=== PATIENT | female | born 1935 | race Caucasian/White ===

== ENCOUNTER 2021-01-14 10:21 | Inpatient (IN) | payer MEDICARE, BC ==
[2021-01-14] MEDS ORDERED: SODIUM CHLORIDE 0.9% 1,000 ML IV ONE (10:25)
[2021-01-14] MEDS ORDERED: SODIUM CHLORIDE 0.9% 1,000 ML IV STA (10:25)
[2021-01-14 11:16] LABS: Glucose,Whole Blood 111 mg/dL (75-99)
[2021-01-14 11:27] LABS: Basophils % (A) 0 %; Eosinophils % (A) 0 %; HCT 53.8 % (34.0-46.0); HGB 17.5 gm/dL (11.4-16.0); Lymphocytes # (A) 0.8 k/uL (1.0-4.8); Lymphocytes % (A) 5 %; MCH 29.4 pg (25.0-35.0); MCHC 32.5 g/dL (31.0-37.0); MCV 90.5 fL (80.0-100.0); Mean Platelet Volume 7.6; Monocytes # (A) 0.9 k/uL (0-1.0); Monocytes % (A) 6 %; Neutrophils # (A) 13.7 k/uL (1.3-7.7); Neutrophils % (A) 88 %; Platelet Count 217 k/uL (150-450); RBC 5.94 m/uL (3.80-5.40); RDW 13.7 % (11.5-15.5); WBC 15.5 k/uL (3.8-10.6)
[2021-01-14 11:34] LABS: Amorphous Sediment,Urine Rare /hpf; Appearance,Urine Cloudy (Clear); Bacteria,Urine Occasional /hpf; Bilirubin,Urine Negative (Negative); Blood,Urine Large (Negative); Color,Urine Light Yellow; Glucose,Urine (UA) Trace (Negative); Hyaline Casts,Urine 3 /lpf (0-2); Ketones,Urine 2+ (Negative); Leukocyte Esterase,Urine Negative (Negative); Mucus,Urine Rare /hpf; Nitrite,Urine Negative (Negative); Protein,Urine 2+ (Negative); RBC,Urine 4 /hpf (0-5); Specific Gravity,Urine 1.014 (1.001-1.035); Urobilinogen,Urine <2.0 mg/dL (<2.0); WBC,Urine 3 /hpf (0-5)
[2021-01-14 11:38] LABS: Amphetamine Screen,Urine Not Detected (NotDetected); Barbiturate Screen,Urine Not Detected (NotDetected); Benzodiazepines Screen,Urine Not Detected (NotDetected); Cocaine Screen,Urine Not Detected (NotDetected); Methadone Screen, Urine Not Detected (NotDetected); Opiate Screen,Urine Not Detected (NotDetected); Oxycodone Screen, Urine Not Detected (NotDetected); Phencyclidine Screen,Urine Not Detected (NotDetected); Tricyclic Antidepressant,Urine Not Detected (NotDetected); Urn Cannabinoid Scrn Not Detected (NotDetected)
[2021-01-14 11:39] LABS: ALT 22 U/L (4-34); African American GFR (CKD) 62 (>60 ml/min/1.73 sqM); Albumin 4.6 g/dL (3.5-5.0); Alcohol <10 mg/dL; Anion Gap 16 mmol/L; Blood Urea Nitrogen 24 mg/dL (7-17); Calcium 9.4 mg/dL (8.4-10.2); Carbon Dioxide 18 mmol/L (22-30); Chloride 101 mmol/L (98-107); Glucose 117 mg/dL (74-99); INR 1.1 (<1.2); Non-African American GFR(CKD) 54 (>60 ml/min/1.73 sqM); Prothrombin Time 11.2 sec (9.0-12.0); Sodium 135 mmol/L (137-145); Total Bilirubin 1.8 mg/dL (0.2-1.3); Total Protein 8.2 g/dL (6.3-8.2)
[2021-01-14 11:43] LABS: AST 75 U/L (14-36); Alkaline Phosphatase 79 U/L (38-126); Potassium 5.7 mmol/L (3.5-5.1)
[2021-01-14 11:44] LABS: Creatine Kinase 1568 U/L (30-135)
--- NOTE | 2021-01-14 11:51 | XR ---
EXAMINATION TYPE: XR chest 2V DATE OF EXAM: 01/14/2021 COMPARISON: None INDICATION: Altered mental status TECHNIQUE: Frontal and lateral views of the chest are obtained. FINDINGS: The heart size is moderately prominent. The pulmonary vasculature is normal. Focal consolidation is not identified.. IMPRESSION: 1. No acute pulmonary process.
--- NOTE | 2021-01-14 11:54 | CT ---
EXAMINATION TYPE: CT brain shannon lou DATE OF EXAM: 01/14/2021 COMPARISON: None HISTORY: altered mental status, found outside unresponsive CT DLP: 1595.8 mGycm, Automated exposure control for dose reduction was used. CONTRAST: Patient injected with 0 mL of Isovue 300. CT of the brain is performed utilizing 3 mm thick sections through the posterior fossa and 3 mm thick sections through the remaining calvarium. Study is performed within 24 hours of arrival to the hospital. No abnormal hyperdensity is present to suggest an acute intracranial hemorrhage. No mass lesion is evident. No acute infarcts are evident. Periventricular white matter hypodensity is present, likely on the ba sis of chronic white matter ischemic changes. Ventricles and sulci are appropriate for the patient age. Paranasal sinuses and mastoid air cells within the [id number] are clear. IMPRESSIONS: 1. Mild appearing periventricular white matter ischemic changes. CT cervical spine. COMPARISON: None CT of the cervical spine is performed in the axial plane at 2 mm thick sections. Reconstructed image s in the coronal, and sagittal plane are reviewed on the computer. No acute fractures are evident. Vertebral body alignment is normal. There is loss of disc height especially noted see 45 C5-6 C6-7. Some endplate spurring is present at these levels. No spinal canal stenosis is present. Vertebral body heights are preserved. No spinal canal stenosis is evident. Uncovertebral hypertrophy is narrowing on the left at C4-5 bilateral uncovertebral vertebrae is prese nt causing moderate foraminal narrowing C5-6 uncovertebral joint hypertrophy is present at C6-7 with moderate foraminal narrowing. IMPRESSIONS: 1. No acute osseous abnormality cervical spine. 2. Advanced degenerative disc changes C4-5 through C6-7. 3. Uncovertebral joint hypertrophy contributing to foraminal narrowing discussed above lower cervical spine
--- NOTE | 2021-01-14 12:05 | ED ---
General Adult HPI - General Chief complaint: Neuro Symptoms/Deficit Stated complaint: Possible stroke, Fall Time Seen by Provider: 01/14/21 10:21 Source: patient, EMS, RN notes reviewed Mode of arrival: EMS - History of Present Illness Initial comments: Is a 78-year-old female who apparently was found on the ground outside in her nightgown by a relative. His believes she may have been out there all night. She was brought in by EMS she was altered evidence of hypothermia. She was nonconversant. HEENT confused. - Related Data Home Medications Medication Instructions Recorded Confirmed Aspirin 81 mg PO DAILY 07/01/14 01/14/21 Metoprolol Tartrate [Lopressor] 100 mg PO BID 07/01/14 01/14/21 Fish Oil(Unknown Dose) 1 cap PO DAILY 01/14/21 01/14/21 Multivitamins, Thera [Multivitamin 1 tab PO DAILY 01/14/21 01/14/21 (formulary)] Naproxen [Naprosyn] 500 mg PO DAILY 01/14/21 01/14/21 Vitamin D3(Unknown Dose) 1 cap PO DAILY 01/14/21 01/14/21 Allergies Allergy/AdvReac Type Severity Reaction Status Date / Time No Known Allergies Allergy Verified 01/14/21 12:04 Review of Systems ROS Statement: Those systems with pertinent positive or pertinent negative responses have been documented in the HPI. ROS Other: All systems not noted in ROS Statement are negative. Limitations: ROS unobtainable due to patients medical condition Past Medical History Past Medical History: Cancer, CVA/TIA, Hypertension Additional Past Medical History / Comment(s): skin cancer History of Any Multi-Drug Resistant Organisms: None Reported Past Surgical History: Orthopedic Surgery Additional Past Surgical History / Comment(s): tumor removed rt wrist, rt bunionectomy Past Anesthesia/Blood Transfusion Reactions: No Reported Reaction Past Psychological History: No Psychological Hx Reported Smoking Status: Unknown if ever smoked Past Alcohol Use History: None Reported Past Drug Use History: None Reported - Past Family History Daughter(s) Family Medical History: Cancer General Exam - General Exam Comments Initial Comments: This is a well-developed sec appearing female who is awake and confused nonverbal Limitations: altered mental status, physical limitation General appearance: alert, lethargic Head exam: Present: other (Some abrasion seen to the forehead) Eye exam: Present: normal appearance, PERRL, EOMI. Absent: scleral icterus, conjunctival injection, periorbital swelling ENT exam: Present: mucous membranes dry Neck exam: Present: normal inspection, full ROM, other (No stridor JVD or bruits). Absent: tenderness, meningismus, lymphadenopathy Respiratory exam: Present: normal lung sounds bilaterally. Absent: respiratory distress, wheezes, rales, rhonchi, stridor Cardiovascular Exam: Present: regular rate, tachycardia GI/Abdominal exam: Present: soft, normal bowel sounds. Absent: distended, tenderness, guarding, rebound, rigid Rectal exam: Present: normal inspection Extremities exam: Present: other (Evidence of pressure sores on the left medial metatarsal phalangeal joint and also the dorsal aspect of the toes on the right as well as the lower extremities.) Skin exam: Present: dry, pallor (Cool the touch). Absent: warm Course Vital Signs 01/14/21 01/14/21 01/14/21 10:23 11:56 14:01 Temperature 90.6 F L 97.4 F L Pulse Rate 142 H 68 75 Respiratory 18 18 18 Rate Blood Pressure 76/64 144/94 129/90 O2 Sat by Pulse 92 L 93 L 95 Oximetry - Reevaluation(s) Reevaluation #1: 01/14/21 14:38 Repeat evaluations were done patient's neurological status is essentially unchanged did have a long discussion with the patient's son who did find the patient lying on the ground wearing only nightgown. Patient apparently had a lot of house and did not things over on her way out of the house. He also relates that she's been not feeling right last couple days. He is aware the current status. EKG Findings - EKG Results: EKG: interpreted by CAROLINA, sinus rhythm (Sinus rhythm with occasional PVCs rate 70. Interval 182 QRS 142 QT since QTC 526/568) the read block with anterior fascicular block nonspecific inferior changes) Medical Decision Making - Medical Decision Making I did reevaluate the patient multiple occasions she neurologically is not improved cervical anoxia is considered as well as CVA. She is improving with respect to heart rate after rehydration and warming with the latest temperature 97.5, and latest examination. Patient initially started with a blood pressure 76/64 heart rate 142. Did a long discussion the patient's family as well as with Dr. Villa and later Dr. Lynn. She'll be admitted with narrowing cardiology consultation. Per nursing 1 family member was concerned for the right arm though initially she was a present patient will receive x-rays. These are pending. - Lab Data Result diagrams: 01/14/21 11:14 01/14/21 11:14 Lab Results 01/14/21 01/14/21 01/14/21 Range/Units 11:14 11:14 11:14 WBC 15.5 H (3.8-10.6) k/uL RBC 5.94 H (3.80-5.40) m/uL Hgb 17.5 H (11.4-16.0) gm/dL Hct 53.8 H (34.0-46.0) % MCV 90.5 (80.0-100.0) fL MCH 29.4 (25.0-35.0) pg MCHC 32.5 (31.0-37.0) g/dL RDW 13.7 (11.5-15.5) % Plt Count 217 (150-450) k/uL MPV 7.6 Neutrophils % 88 % Lymphocytes % 5 % Monocytes % 6 % Eosinophils % 0 % Basophils % 0 % Neutrophils # 13.7 H (1.3-7.7) k/uL Lymphocytes # 0.8 L (1.0-4.8) k/uL Monocytes # 0.9 (0-1.0) k/uL Eosinophils # 0.0 (0-0.7) k/uL Basophils # 0.0 (0-0.2) k/uL PT 11.2 (9.0-12.0) sec INR 1.1 (<1.2) APTT 24.0 (22.0-30.0) sec Sodium (137-145) mmol/L Potassium (3.5-5.1) mmol/L Chloride (98-107) mmol/L Carbon Dioxide (22-30) mmol/L Anion Gap mmol/L BUN (7-17) mg/dL Creatinine (0.52-1.04) mg/dL Est GFR (CKD-EPI)AfAm (>60 ml/min/1.73 sqM) Est GFR (CKD-EPI)NonAf (>60 ml/min/1.73 sqM) Glucose (74-99) mg/dL POC Glucose (mg/dL) (75-99) mg/dL POC Glu Bridge Instructor ID Calcium (8.4-10.2) mg/dL Total Bilirubin (0.2-1.3) mg/dL AST (14-36) U/L ALT (4-34) U/L Alkaline Phosphatase (38-126) U/L Ammonia (<30) umol/L Creatine Kinase (30-135) U/L Troponin I (0.000-0.034) ng/mL Total Protein (6.3-8.2) g/dL Albumin (3.5-5.0) g/dL Urine Color Light Yellow Urine Appearance Cloudy H (Clear) Urine pH 6.0 (5.0-8.0) Ur Specific [place] 1.014 (1.001-1.035) Urine Protein 2+ H (Negative) Urine Glucose (UA) Trace H (Negative) Urine Ketones 2+ H (Negative) Urine Blood Large H (Negative) Urine Nitrite Negative (Negative) Urine Bilirubin Negative (Negative) Urine Urobilinogen <2.0 (<2.0) mg/dL Ur Leukocyte Esterase Negative (Negative) Urine RBC 4 (0-5) /hpf Urine WBC 3 (0-5) /hpf Amorphous Sediment Rare H (None) /hpf Urine Bacteria Occasional H (None) /hpf Hyaline Casts 3 H (0-2) /lpf Urine Mucus Rare H (None) /hpf Urine Opiates Screen Not Detected (NotDetected) Ur Oxycodone Screen Not Detected (NotDetected) Urine Methadone Screen Not Detected (NotDetected) Ur Propoxyphene Screen Not Detected (NotDetected) Ur Barbiturates Screen Not Detected (NotDetected) U Tricyclic Antidepress Not Detected (NotDetected) Ur Phencyclidine Scrn Not Detected (NotDetected) Ur Amphetamines Screen Not Detected (NotDetected) U Methamphetamines Scrn Not Detected (NotDetected) U Benzodiazepines Scrn Not Detected (NotDetected) Urine Cocaine Screen Not Detected (NotDetected) U Marijuana (THC) Screen Not Detected (NotDetected) Serum Alcohol mg/dL 01/14/21 01/14/21 01/14/21 Range/Units 11:14 11:14 11:14 WBC (3.8-10.6) k/uL RBC (3.80-5.40) m/uL Hgb (11.4-16.0) gm/dL Hct (34.0-46.0) % MCV (80.0-100.0) fL MCH (25.0-35.0) pg MCHC (31.0-37.0) g/dL RDW (11.5-15.5) % Plt Count (150-450) k/uL MPV Neutrophils % % Lymphocytes % % Monocytes % % Eosinophils % % Basophils % % Neutrophils # (1.3-7.7) k/uL Lymphocytes # (1.0-4.8) k/uL Monocytes # (0-1.0) k/uL Eosinophils # (0-0.7) k/uL Basophils # (0-0.2) k/uL PT (9.0-12.0) sec INR (<1.2) APTT (22.0-30.0) sec Sodium 135 L (137-145) mmol/L Potassium 5.7 H (3.5-5.1) mmol/L Chloride 101 (98-107) mmol/L Carbon Dioxide 18 L (22-30) mmol/L Anion Gap 16 mmol/L BUN 24 H (7-17) mg/dL Creatinine 0.95 (0.52-1.04) mg/dL Est GFR (CKD-EPI)AfAm 62 (>60 ml/min/1.73 sqM) Est GFR (CKD-EPI)NonAf 54 (>60 ml/min/1.73 sqM) Glucose 117 H (74-99) mg/dL POC Glucose (mg/dL) (75-99) mg/dL POC Glu Bridge Instructor ID Calcium 9.4 (8.4-10.2) mg/dL Total Bilirubin 1.8 H (0.2-1.3) mg/dL AST 75 H (14-36) U/L ALT 22 (4-34) U/L Alkaline Phosphatase 79 (38-126) U/L Ammonia 42 H (<30) umol/L Creatine Kinase 1568 H* (30-135) U/L Troponin I 0.464 H* (0.000-0.034) ng/mL Total Protein 8.2 (6.3-8.2) g/dL Albumin 4.6 (3.5-5.0) g/dL Urine Color Urine Appearance (Clear) Urine pH (5.0-8.0) Ur Specific [place] (1.001-1.035) Urine Protein (Negative) Urine Glucose (UA) (Negative) Urine Ketones (Negative) Urine Blood (Negative) Urine Nitrite (Negative) Urine Bilirubin (Negative) Urine Urobilinogen (<2.0) mg/dL Ur Leukocyte Esterase (Negative) Urine RBC (0-5) /hpf Urine WBC (0-5) /hpf Amorphous Sediment (None) /hpf Urine Bacteria (None) /hpf Hyaline Casts (0-2) /lpf Urine Mucus (None) /hpf Urine Opiates Screen (NotDetected) Ur Oxycodone Screen (NotDetected) Urine Methadone Screen (NotDetected) Ur Propoxyphene Screen (NotDetected) Ur Barbiturates Screen (NotDetected) U Tricyclic Antidepress (NotDetected) Ur Phencyclidine Scrn (NotDetected) Ur Amphetamines Screen (NotDetected) U Methamphetamines Scrn (NotDetected) U Benzodiazepines Scrn (NotDetected) Urine Cocaine Screen (NotDetected) U Marijuana (THC) Screen (NotDetected) Serum Alcohol <10 mg/dL 01/14/21 Range/Units 11:14 WBC (3.8-10.6) k/uL RBC (3.80-5.40) m/uL Hgb (11.4-16.0) gm/dL Hct (34.0-46.0) % MCV (80.0-100.0) fL MCH (25.0-35.0) pg MCHC (31.0-37.0) g/dL RDW (11.5-15.5) % Plt Count (150-450) k/uL MPV Neutrophils % % Lymphocytes % % Monocytes % % Eosinophils % % Basophils % % Neutrophils # (1.3-7.7) k/uL Lymphocytes # (1.0-4.8) k/uL Monocytes # (0-1.0) k/uL Eosinophils # (0-0.7) k/uL Basophils # (0-0.2) k/uL PT (9.0-12.0) sec INR (<1.2) APTT (22.0-30.0) sec Sodium (137-145) mmol/L Potassium (3.5-5.1) mmol/L Chloride (98-107) mmol/L Carbon Dioxide (22-30) mmol/L Anion Gap mmol/L BUN (7-17) mg/dL Creatinine (0.52-1.04) mg/dL Est GFR (CKD-EPI)AfAm (>60 ml/min/1.73 sqM) Est GFR (CKD-EPI)NonAf (>60 ml/min/1.73 sqM) Glucose (74-99) mg/dL POC Glucose (mg/dL) 111 H (75-99) mg/dL POC Glu Bridge Instructor ID Meche Godoy Calcium (8.4-10.2) mg/dL Total Bilirubin (0.2-1.3) mg/dL AST (14-36) U/L ALT (4-34) U/L Alkaline Phosphatase (38-126) U/L Ammonia (<30) umol/L Creatine Kinase (30-135) U/L Troponin I (0.000-0.034) ng/mL Total Protein (6.3-8.2) g/dL Albumin (3.5-5.0) g/dL Urine Color Urine Appearance (Clear) Urine pH (5.0-8.0) Ur Specific [place] (1.001-1.035) Urine Protein (Negative) Urine Glucose (UA) (Negative) Urine Ketones (Negative) Urine Blood (Negative) Urine Nitrite (Negative) Urine Bilirubin (Negative) Urine Urobilinogen (<2.0) mg/dL Ur Leukocyte Esterase (Negative) Urine RBC (0-5) /hpf Urine WBC (0-5) /hpf Amorphous Sediment (None) /hpf Urine Bacteria (None) /hpf Hyaline Casts (0-2) /lpf Urine Mucus (None) /hpf Urine Opiates Screen (NotDetected) Ur Oxycodone Screen (NotDetected) Urine Methadone Screen (NotDetected) Ur Propoxyphene Screen (NotDetected) Ur Barbiturates Screen (NotDetected) U Tricyclic Antidepress (NotDetected) Ur Phencyclidine Scrn (NotDetected) Ur Amphetamines Screen (NotDetected) U Methamphetamines Scrn (NotDetected) U Benzodiazepines Scrn (NotDetected) Urine Cocaine Screen (NotDetected) U Marijuana (THC) Screen (NotDetected) Serum Alcohol mg/dL - Radiology Data Radiology results: report reviewed (UG reviewed no acute findings noted at this time.), image reviewed Critical Care Time Critical Care Time: Yes Total Critical Care Time: 49 Critical Care Time: Critical care time includes the time of initial evaluation labs x-rays CT was discussed with paramedics on arrival multiple reevaluation the patient to responsive therapy discussion with the patient's son and discussed with the main physician admission orders documentation the above Disposition Clinical Impression: Cerebral anoxia, Hypothermia, Rhabdomyolysis, Dehydration, NSTEMI (non-ST elevated myocardial infarction) Disposition: ADMITTED IP TO THIS HOSP Condition: Serious Referrals: Silvano Beatty MD [Primary Care Provider] - 1-2 days
[2021-01-14] MEDS: NALOXONE 0.4 MG/ML 1 ML VIAL IVP STA ×2 (13:02→16:39)
[2021-01-14] MEDS ORDERED: NALOXONE 0.4 MG/ML 1 ML VIAL IV PRN (14:44)
[2021-01-14] MEDS ORDERED: ENOXAPARIN 120 MG/0.8 ML SYRINGE SQ STA (14:48)
[2021-01-14] MEDS ORDERED: ENOXAPARIN 40 MG/0.4 ML SYRINGE SQ ONE (15:00)
--- NOTE | 2021-01-14 15:42 | XR ---
EXAMINATION TYPE: XR forearm RT DATE OF EXAM: 01/14/2021 COMPARISON: NONE HISTORY: Pain. Trauma. TECHNIQUE: 3 views FINDINGS: I see no fracture nor dislocation. Radius and ulna appear intact. Elbow joint appears intac t. IMPRESSION: Negative right forearm exam. No fracture.
--- NOTE | 2021-01-14 15:43 | XR ---
EXAMINATION TYPE: XR humerus RT DATE OF EXAM: 01/14/2021 COMPARISON: NONE HISTORY: Pain TECHNIQUE: 3 views FINDINGS: I see no fracture nor dislocation. Shoulder joint and elbow joint appear intact. Scapula ap pears intact. IMPRESSION: Negative right humerus exam.
[2021-01-14] MEDS: DEXTROSE 5%-0.45% NACL 1,000 ML IV SCH ×2 (15:52→23:13)
[2021-01-14 17:43] LABS: Glucose,Whole Blood 99 mg/dL (75-99)
[2021-01-14] MEDS ORDERED: LORazepam 2 MG/ML INJ IV STA (17:47)
--- NOTE | 2021-01-14 19:22 | CT ---
EXAMINATION TYPE: CT angio head neck DATE OF EXAM: 01/14/2021 COMPARISON: None HISTORY: Left eye gaze, inaudible speech, suspected CVA. CT DLP: 1011.5 mGycm Automated exposure control for dose reduction was used. CONTRAST: Performed with IV Contrast, patient injected with 65 mL of Isovue 370. Images were obtained from the aortic arch to the vertex of the brain with IV contrast. There are 3-D post processed images. There is no mediastinal adenopathy. There are no hilar masses. There is normal branching pattern of t he great vessels on the aortic arch. There is bilateral arterial flow in the subclavian arteries. The re is tortuous right common carotid artery. There is arterial flow in the common internal and externa l carotid arteries bilaterally. Exam limited slightly by motion artifact. I see no evidence of any st enosis at the right carotid artery bifurcation. There is some plaque formation and probably 50% steno sis proximal left internal carotid artery. There is arterial flow in both vertebral arteries. There is arterial flow in the vertebrobasilar artery system. There is arterial flow in the anterior m iddle and posterior cerebral arteries. I see no evidence of intracranial hemodynamic arterial stenosi s. There is normal contrast opacification of the venous sinuses. I see no evidence of intracranial an eurysm or neovascularity. IMPRESSION: No intracranial angiographic abnormality. Tortuous right carotid artery. There is probably 50% stenosis of the proximal left internal carotid a rtery. Exam limited slightly by motion.
[2021-01-14] MEDS ORDERED: LABETALOL 5 MG/ML VIAL MDV IVP PRN (20:11)
[2021-01-14] MEDS ORDERED: ASPIRIN 300 MG SUPP RECTAL ONE (21:00)
[2021-01-15 00:10] LABS: Glucose,Whole Blood 138 mg/dL (75-99)
[2021-01-15] MEDS ORDERED: ACETAMINOPHEN SUPPOSITORY 650 MG SUPP RECTAL STA (03:59)
[2021-01-15 04:13] LABS: Basophils % (A) 0 %; Eosinophils % (A) 0 %; HCT 44.7 % (34.0-46.0); HGB 14.8 gm/dL (11.4-16.0); Lymphocytes # (A) 1.1 k/uL (1.0-4.8); Lymphocytes % (A) 7 %; MCH 29.5 pg (25.0-35.0); MCHC 33.1 g/dL (31.0-37.0); MCV 88.9 fL (80.0-100.0); Mean Platelet Volume 8.9; Monocytes # (A) 1.1 k/uL (0-1.0); Monocytes % (A) 7 %; Neutrophils # (A) 13.9 k/uL (1.3-7.7); Neutrophils % (A) 86 %; Platelet Count 199 k/uL (150-450); RBC 5.03 m/uL (3.80-5.40); RDW 13.6 % (11.5-15.5); WBC 16.2 k/uL (3.8-10.6)
[2021-01-15 04:33] LABS: Albumin 3.7 g/dL (3.5-5.0); Potassium 4.4 mmol/L (3.5-5.1); Total Bilirubin 1.2 mg/dL (0.2-1.3); Total Protein 6.8 g/dL (6.3-8.2)
[2021-01-15] MEDS ORDERED: FUROSEMIDE 10 MG/ML 2 ML VIAL IV ONE (04:48)
[2021-01-15] MEDS: DEXTROSE 5%-0.45% NACL 1,000 ML IV SCH ×3 (06:13→21:19)
--- NOTE | 2021-01-15 06:49 | P.CNPUL ---
History of Present Illness Consult date: 01/15/21 Chief complaint: Altered mental status History of present illness: there is an 6-year-old female patient who was apparently found on the ground. The patient was brought into the emergency department. She had altered mentation and she was hypothermic. She was nonconversant and she was confused. The exact timing of the altered mentation versus fall could not be established. patient is known to have previous history of CVA and hypertension. In the ED, she was confused, hypothermic with a temperature of 90.6 and she was given external warming and the temperature subsequently came back to 97.4. She was initially tachycardic and hypotensive with a BP of 76/64 and the patient was given IV fluids and blood pressure improved and stabilized. The patient had an EKG that showed a sinus rhythm with a left anterior fascicular block and some nonspecific inferior leads changes. The white cell count was at 15.5 with a hemoglobin of 17.5 and a platelet count of 217. Sodium was 135, potassium level was 5.7 and the creatinine was 0.95 and a glucose was 117. the patien the patient had a CPK of 1568 with a troponin level was 0.4. UA showed +2 protein, the urine drug screen was negative and the covid 19 testing was also negative. The chest x-ray showed no acute pulmonary process, the computed tomography scan of the head showed no acute abnormalities. The computed tomography scan of the neck showed no osseous abnormality of the cervical spine and there was advanced degenerative disc changes involving C4-C5 and C6-C7 and foraminal narrowing of the lower cervical spine. The x-ray of the forearm and x-ray of the humerus was within normal limits, and a CT angiogram of the brain was done and it showed no intracranial angiographic abnormality. There was a tortuous right carotid probably 50% stenosis of the proximal left internal carotid artery. Accordingly, the patient was admitted to the ICU. The patient was started aspirin mg rectally and the patient was started on D5 half-normal saline at the rate of 130 mL an hour. Review of Systems ROS unobtainable: due to mental status Past Medical History Past Medical History: Cancer, CVA/TIA, Hypertension Additional Past Medical History / Comment(s): skin cancer History of Any Multi-Drug Resistant Organisms: None Reported Past Surgical History: Orthopedic Surgery Additional Past Surgical History / Comment(s): tumor removed rt wrist, rt bunionectomy Past Anesthesia/Blood Transfusion Reactions: No Reported Reaction Past Psychological History: No Psychological Hx Reported Smoking Status: Former smoker Past Alcohol Use History: None Reported Past Drug Use History: None Reported - Past Family History Daughter(s) Family Medical History: Cancer Medications and Allergies Home Medications Medication Instructions Recorded Confirmed Type Aspirin 81 mg PO DAILY 07/01/14 01/14/21 History Metoprolol Tartrate [Lopressor] 100 mg PO BID 07/01/14 01/14/21 History Fish Oil(Unknown Dose) 1 cap PO DAILY 01/14/21 01/14/21 History Multivitamins, Thera [Multivitamin 1 tab PO DAILY 01/14/21 01/14/21 History (formulary)] Naproxen [Naprosyn] 500 mg PO DAILY 01/14/21 01/14/21 History Vitamin D3(Unknown Dose) 1 cap PO DAILY 01/14/21 01/14/21 History Allergies Allergy/AdvReac Type Severity Reaction Status Date / Time No Known Allergies Allergy Verified 01/14/21 12:04 Physical Exam Vitals: Vital Signs Temp Pulse Resp BP Pulse Ox 01/15/21 06:00 89 27 H 144/104 94 L 01/15/21 05:00 91 26 H 158/126 95 01/15/21 04:00 101.0 F H 92 28 H 165/96 94 L 01/15/21 03:00 90 26 H 162/108 93 L 01/15/21 02:00 91 27 H 137/87 91 L 01/15/21 01:00 89 28 H 149/88 94 L 01/15/21 00:28 85 23 132/88 93 L 01/15/21 00:00 99.0 F 86 26 H 141/98 94 L 01/14/21 23:00 87 22 141/106 92 L 01/14/21 22:00 83 27 H 137/119 92 L 01/14/21 21:00 84 23 158/101 92 L 01/14/21 20:00 100.8 F H 81 23 160/119 93 L 01/14/21 19:00 80 22 162/116 96 01/14/21 18:00 82 25 H 157/133 97 01/14/21 17:00 97.8 F 85 24 142/130 97 01/14/21 16:05 98.4 F 76 18 136/91 96 01/14/21 15:00 99.0 F 82 20 140/88 97 01/14/21 14:01 97.4 F L 75 18 129/90 95 01/14/21 13:00 95.2 F L 90 20 150/94 95 01/14/21 11:56 90.6 F L 68 18 144/94 93 L 01/14/21 10:23 142 H 18 76/64 92 L Intake and Output 01/14/21 01/14/21 01/15/21 14:59 22:59 06:59 Intake Total 910 1040 Output Total 795 370 Balance 115 670 Intake: Intake, IV Titration 910 1040 Amount Dextrose 5%-0.45% NaCl 1, 910 1040 000 ml @ 130 mls/hr IV . Q7H42M [facility] Rx#:[id number] Output: Urine 795 370 Other: Voiding Method Indwelling Catheter Indwelling Catheter Weight 89.766 kg 89.766 kg 87.3 kg This is a well-developed sec appearing female who is awake and confused nonv erbal, and the patient is nonresponsive. Upon painful stimulation, the patient is predominantly using her left side compared to the right. He was not equal and reactive to light. No facial asymmetry. No Babinski. No clonus. Reflexes are equal and symmetrical in all 4 extremities. Limitations: altered mental status, physical limitation General appearance: alert, lethargic Head exam: Present: other (Some abrasion seen to the forehead) Eye exam: Present: normal appearance, PERRL, EOMI. Absent: scleral icterus, conjunctival injection, periorbital swelling ENT exam: Present: mucous membranes dry Neck exam: Present: normal inspection, full ROM, other (No stridor JVD or bruits). Absent: tenderness, meningismus, lymphadenopathy Respiratory exam: Present: normal lung sounds bilaterally. Absent: respiratory distress, wheezes, rales, rhonchi, stridor Cardiovascular Exam: Present: regular rate, tachycardia GI/Abdominal exam: Present: soft, normal bowel sounds. Absent: distended, tenderness, guarding, rebound, rigid Rectal exam: Present: normal inspection Extremities exam: Present: other (Evidence of pressure sores on the left medial metatarsal phalangeal joint and also the dorsal aspect of the toes on the right as well as the lower extremities.) Patient has areas of bruising over the left knee, right knee laterally, toes bilaterally. Skin exam: Present: dry, pallor (Cool the touch). Absent: warm Results - Laboratory Findings CBC and BMP: 01/15/21 03:10 01/15/21 03:10 PT/INR, D-dimer PT 11.2 sec (9.0-12.0) 01/14/21 11:14 INR 1.1 (<1.2) 01/14/21 11:14 Abnormal lab findings: Abnormal Labs 01/14/21 01/14/21 01/14/21 11:14 11:14 11:14 WBC 15.5 H RBC 5.94 H Hgb 17.5 H Hct 53.8 H Neutrophils # 13.7 H Lymphocytes # 0.8 L Monocytes # Sodium 135 L Potassium 5.7 H Carbon Dioxide 18 L BUN 24 H Glucose 117 H POC Glucose (mg/dL) Total Bilirubin 1.8 H AST 75 H Ammonia Creatine Kinase 1568 H* Troponin I Urine Appearance Cloudy H Urine Protein 2+ H Urine Glucose (UA) Trace H Urine Ketones 2+ H Urine Blood Large H Amorphous Sediment Rare H Urine Bacteria Occasional H Hyaline Casts 3 H Urine Mucus Rare H 01/14/21 01/14/21 01/14/21 11:14 11:14 11:14 WBC RBC Hgb Hct Neutrophils # Lymphocytes # Monocytes # Sodium Potassium Carbon Dioxide BUN Glucose POC Glucose (mg/dL) 111 H Total Bilirubin AST Ammonia 42 H Creatine Kinase Troponin I 0.464 H* Urine Appearance Urine Protein Urine Glucose (UA) Urine Ketones Urine Blood Amorphous Sediment Urine Bacteria Hyaline Casts Urine Mucus 01/15/21 01/15/21 01/15/21 00:08 03:10 03:10 WBC 16.2 H RBC Hgb Hct Neutrophils # 13.9 H Lymphocytes # Monocytes # 1.1 H Sodium 133 L Potassium Carbon Dioxide BUN 28 H Glucose 124 H POC Glucose (mg/dL) 138 H Total Bilirubin AST 106 H Ammonia Creatine Kinase Troponin I Urine Appearance Urine Protein Urine Glucose (UA) Urine Ketones Urine Blood Amorphous Sediment Urine Bacteria Hyaline Casts Urine Mucus - Diagnostic Findings Chest x-ray: image reviewed Assessment and Plan Plan: 1 acute altered mental status, currently under investigation. Exact etiology not clear. CAT scan of the brain is negative. CT angiogram of the brain was a lso negative with limited stenosis of the left carotid artery. 2 acute hypothermia, recovered, the body temperature is currently up to normalized and even hyperthermic with a T-max of 11 and the patient was given Tylenol 3 acute hypotension, improved with fluids, the patient received a liter of IV fluids in the emergency and currently she is receiving normal saline at the rate of D5 half-normal at 130 mL an hour. 4 acute rhabdomyolysis 5 history of hypertension 6 mild leukocytosis, likely reactive 7 mild anion gap metabolic acidosis, recovered 8 troponin leak, without any acute EKG changes to suggest acute myocardial infarction Plan Continue IV fluids and 130 mL an hour Patient is producing adequate amount of urine output Monitor the CPK and repeat levels are pending from today Neurology consultation MRI of the brain today EEG of the brain today Audiology to evaluate on the troponin leak and obtain a baseline echocardiogram Monitor fever pattern, no antibiotic coverage for now We'll continue to follow, and the patient can be potentially transferred out as she is being investigated for her neuro
--- NOTE | 2021-01-15 11:00 | ECHOF ---
Referral Reason:assess heart function MEASUREMENTS -------- HEIGHT: 157.5 cm WEIGHT: 87.1 kg BP: RVIDd: 2.9 cm (< 3.3) IVSd: 1.3 cm (0.6 - 1.1) LVIDd: 3.8 cm (3.9 - 5.3) LVPWd: 1.2 cm (0.6 - 1.1) IVSs: 1.8 cm LVIDs: 2.6 cm LVPWs: 1.5 cm LA Diam: 3.4 cm (2.7 - 3.8) LAESV Index (A-L): 17.29 ml/m Ao Diam: 3.0 cm (2.0 - 3.7) AV Cusp: 1.8 cm (1.5 - 2.6) MV EXCURSION: 16.594 mm (> 18.000) MV EF SLOPE: 64 mm/s (70 - 150) EPSS: 0.8 cm MV E Ra: 0.86 m/s MV DecT: 188 ms MV A Ra: 1.08 m/s MV E/A Ratio: 0.80 FINDINGS -------- Sinus rhythm. This was a technically adequate study. The left ventricular size is normal. There is mild concentric left ventricular hypertrophy. Overa ll left ventricular systolic function is normal with, an EF between 55 - 60 %. The right ventricle is normal in size. Normal LA size by volume 22+/-6 ml/m2. The right atrium is normal in size. Interatrial and interventricular septum intact. There is mild aortic valve sclerosis. There is trace mitral regurgitation. The tricuspid valve appears structurally normal. The pulmonic valve was not well visualized. The aortic root size is normal. Normal inferior vena cava with normal inspiratory collapse consistent with estimated right atrial pre ssure of 5 mmHg. There is no pericardial effusion. CONCLUSIONS -------- 1. The left ventricular size is normal. 2. There is mild concentric left ventricular hypertrophy. 3. Overall left ventricular systolic function is normal with, an EF between 55 - 60 %. 4. There is mild aortic valve sclerosis. 5. There is trace mitral regurgitation. 6. There is no pericardial effusion. MEDICAL CASE WORKER: Jazmyne Chau RDCS
--- NOTE | 2021-01-15 11:23 | P.CRDCN ---
History of Present Illness Consult date: 01/15/21 History of present illness: HISTORY OF PRESENT ILLNESS: This is a 86 year old female with a past medical history significant for hypertension and CVA with no residual deficits. it is unknown if the patient follows with a claims investigator. We have been asked to see the patient in consultation for elevated troponin. Patient examined at the bedside in the intensive care unit. Patient is lethargic and unable to provide any history. majority of HPI obtained from EMR and nursing staff. Apparently, the patient lives by herself and is usually fairly independent. Her son found her outside on the ground with altered mentation. Patient was found to be hypotensive and hypothermic upon arrival to the ER. She was treated with IV fluids and admitted to the ICU. Patient is currently hemodynamically stable without vasopressors. EKG reveals sinus rhythm with PVCs. Right bundle-branch block. Left anterior fascicular block. Bifascicular block. Chest xray no acute pulmonary process CT head and cervical spine: mild appearing periventricular white matter ischemic changes. no acute osseous abnormality of cervical spine. Advanced degenerative disc changes C4-5 through C67. Uncovertebral joint hypertrophy contributing to foraminal narrowing. Right forearm x-ray: Negative exam. No fracture seen. Right humerus xray: Negative exam. No fracture seen. CTA brain: no intracranial angiographic abnormality. Torturous right carotid artery. Probably 50% stenosis of the proximal left internal carotid artery. Laboratory data: WBC 16.2. Hemoglobin 14.8. Platelet count 199. Sodium 133. Potassium 4.4. BUN 28. Creatinine 1.01. Lactic acid 2.2. Creatinine kinase 1568. Repeat 2874. Troponin 0.464. 0.559 Current home cardiac medications include aspirin 81mg daily and metoprolol tartrate 100 mg twice a day REVIEW OF SYSTEMS: Unable to obtain thorough review of systems secondary to lethargy and altered mental status PHYSICAL EXAM: VITAL SIGNS: Reviewed. GENERAL: Well-developed in no acute distress. Lethargic. HEENT: Head is normocephalic. Pupils are equal, round. Sclerae anicteric. Mucous membranes of the mouth are moist. Neck supple. No JVD or thyromegaly LUNGS: Respirations even and unlabored. Lungs diminished bilaterally. HEART: Regular rate and rhythm. S1 and S2 heard. ABDOMEN: Soft. Nondistended. Nontender. EXTREMITIES: No clubbing or cyanosis. Peripheral pulses intact. No lower ext remity edema. Patient with multiple abrasions to bilateral lower extremities NEUROLOGIC: Lethargic. ASSESSMENT: Altered mental status s/p being down on the ground, etiology unclear Hypotension, improved with IVF Hypothermia Acute rhabdomyolysis Leukocytosis Abnormal troponins, not suggestive of myocardial injury Elevated lactic acid Hypertension History of CVA PLAN: Continue ICU management per Dr. Burr Neurology consulted. Patient scheduled for MRI and EEG Continue telemetry monitoring Monitor blood pressure Obtain 2D echo to assess cardiac structure and function Further recommendations pending patient course Nurse practitioner note has been reviewed by physician. Signing provider agrees with the documented findings, assessment, and plan of care. Past Medical History Past Medical History: Cancer, CVA/TIA, Hypertension Additional Past Medical History / Comment(s): skin cancer History of Any Multi-Drug Resistant Organisms: None Reported Past Surgical History: Orthopedic Surgery Additional Past Surgical History / Comment(s): tumor removed rt wrist, rt bunionectomy Past Anesthesia/Blood Transfusion Reactions: No Reported Reaction Past Psychological History: No Psychological Hx Reported Smoking Status: Former smoker Past Alcohol Use History: None Reported Past Drug Use History: None Reported - Past Family History Daughter(s) Family Medical History: Cancer Medications and Allergies Home Medications Medication Instructions Recorded Confirmed Type Aspirin 81 mg PO DAILY 07/01/14 01/14/21 History Metoprolol Tartrate [Lopressor] 100 mg PO BID 07/01/14 01/14/21 History Fish Oil(Unknown Dose) 1 cap PO DAILY 01/14/21 01/14/21 History Multivitamins, Thera [Multivitamin 1 tab PO DAILY 01/14/21 01/14/21 History (formulary)] Naproxen [Naprosyn] 500 mg PO DAILY 01/14/21 01/14/21 History Vitamin D3(Unknown Dose) 1 cap PO DAILY 01/14/21 01/14/21 History Allergies Allergy/AdvReac Type Severity Reaction Status Date / Time hydralazine AdvReac weaky, Verified 01/15/21 08:42 dizzy, nausea Physical Exam Vitals: Vital Signs Temp Pulse Resp BP Pulse Ox 01/15/21 08:00 99.4 F 85 25 H 125/67 95 01/15/21 07:00 87 26 H 150/81 94 L 01/15/21 06:00 89 27 H 144/104 94 L 01/15/21 05:00 91 26 H 158/126 95 01/15/21 04:00 101.0 F H 92 28 H 165/96 94 L 01/15/21 03:00 90 26 H 162/108 93 L 01/15/21 02:00 91 27 H 137/87 91 L 01/15/21 01:00 89 28 H 149/88 94 L 01/15/21 00:28 85 23 132/88 93 L 01/15/21 00:00 99.0 F 86 26 H 141/98 94 L 01/14/21 23:00 87 22 141/106 92 L 01/14/21 22:00 83 27 H 137/119 92 L 01/14/21 21:00 84 23 158/101 92 L 01/14/21 20:00 100.8 F H 81 23 160/119 93 L 01/14/21 19:00 80 22 162/116 96 01/14/21 18:00 82 25 H 157/133 97 01/14/21 17:00 97.8 F 85 24 142/130 97 01/14/21 16:05 98.4 F 76 18 136/91 96 01/14/21 15:00 99.0 F 82 20 140/88 97 01/14/21 14:01 97.4 F L 75 18 129/90 95 01/14/21 13:00 95.2 F L 90 20 150/94 95 01/14/21 11:56 90.6 F L 68 18 144/94 93 L 01/14/21 10:23 142 H 18 76/64 92 L Intake and Output 01/14/21 01/15/21 01/15/21 22:59 06:59 14:59 Intake Total 910 1040 260 Output Total 795 370 120 Balance 115 670 140 Intake: IV 130 Dextrose 5%-0.45% NaCl 1, 130 000 ml @ 130 mls/hr IV . Q7H42M [facility] Rx#:[id number] Intake, IV Titration 910 1040 130 Amount Dextrose 5%-0.45% NaCl 1, 910 1040 130 000 ml @ 130 mls/hr IV . Q7H42M [facility] Rx#:[id number] Output: Urine 795 370 120 Other: Voiding Method Indwelling Catheter Indwelling Catheter Indwelling Catheter Weight 89.766 kg 87.3 kg Results 01/15/21 03:10 01/15/21 03:10 Cardiac Enzymes 01/14/21 01/14/21 01/15/21 Range/Units 11:14 11:14 03:10 AST 75 H 106 H (14-36) U/L Troponin I 0.464 H* (0.000-0.034) ng/mL 01/15/21 Range/Units 07:29 AST (14-36) U/L Troponin I 0.559 H* (0.000-0.034) ng/mL Coagulation 01/14/21 Range/Units 11:14 PT 11.2 (9.0-12.0) sec APTT 24.0 (22.0-30.0) sec CBC 01/14/21 01/15/21 Range/Units 11:14 03:10 WBC 15.5 H 16.2 H (3.8-10.6) k/uL RBC 5.94 H 5.03 (3.80-5.40) m/uL Hgb 17.5 H 14.8 (11.4-16.0) gm/dL Hct 53.8 H 44.7 (34.0-46.0) % Plt Count 217 199 (150-450) k/uL Comprehensive Metabolic Panel 01/14/21 01/15/21 Range/Units 11:14 03:10 Sodium 135 L 133 L (137-145) mmol/L Potassium 5.7 H 4.4 (3.5-5.1) mmol/L Chloride 101 99 (98-107) mmol/L Carbon Dioxide 18 L 23 (22-30) mmol/L BUN 24 H 28 H (7-17) mg/dL Creatinine 0.95 1.01 (0.52-1.04) mg/dL Glucose 117 H 124 H (74-99) mg/dL Calcium 9.4 9.0 (8.4-10.2) mg/dL AST 75 H 106 H (14-36) U/L ALT 22 32 (4-34) U/L Alkaline Phosphatase 79 63 (38-126) U/L Total Protein 8.2 6.8 (6.3-8.2) g/dL Albumin 4.6 3.7 (3.5-5.0) g/dL Current Medications Generic Name Dose Route Start Last Admin Trade Name Freq PRN Reason Stop Dose Admin Dextrose/Sodium Chloride 1,000 mls @ 130 mls/hr 01/14/21 14:45 01/15/21 06:13 Dextrose 5%-1/2ns Iv Soln IV 130 mls/hr .Q7H42M [facility] Administration Labetalol HCl 10 mg 01/14/21 20:11 Labetalol 5 Mg/Ml Vial Mdv IVP ONCE PRN Blood Pressure - High Naloxone HCl 0.2 mg 01/14/21 14:44 Naloxone 0.4 Mg/Ml 1 Ml Vial IV Q2M PRN Opioid Reversal Intake and Output 01/14/21 01/15/21 01/15/21 22:59 06:59 14:59 Intake Total 910 1040 260 Output Total 795 370 120 Balance 115 670 140 Intake: IV 130 Dextrose 5%-0.45% NaCl 1, 130 000 ml @ 130 mls/hr IV . Q7H42M [facility] Rx#:[id number] Intake, IV Titration 910 1040 130 Amount Dextrose 5%-0.45% NaCl 1, 910 1040 130 000 ml @ 130 mls/hr IV . Q7H42M [facility] Rx#:[id number] Output: Urine 795 370 120 Other: Voiding Method Indwelling Catheter Indwelling Catheter Indwelling Catheter Weight 89.766 kg 87.3 kg 01/15/21 03:10 01/15/21 03:10
[2021-01-15 12:36] LABS: Glucose,Whole Blood 111 mg/dL (75-99)
--- NOTE | 2021-01-15 14:26 | MR ---
EXAMINATION TYPE: MR brain wo con DATE OF EXAM: 01/15/2021 COMPARISON: 01/14/2021 CT brain HISTORY: Altered Mental Status CONTRAST: Performed utilizing 0 mL intravenous Gadavist gadolinium contrast. TECHNIQUE: Multiplanar, multiecho imaging on a 3.0 Leonora magnet is performed through the brain. Stud y is not performed within 24 hours of arrival to the hospital. The craniovertebral junction is normal. The pituitary is normal. Diffusion-weighted imaging is performed. No abnormal hyperintensity is present to suggest an acute i ntracranial infarct or acute ischemic change. There are patchy to confluent periventricular white matter changes. Subcortical white matter changes are present greater into the right parietal lobe. Findings are nonspecific but can be related to micr ovascular ischemic change. Small amount of hyperintensity on inversion recovery weighted sequences within the brainstem. There i s some subtle uptake within the brainstem on the diffusion-weighted image, series 505 image 80, which is felt to more likely be artifact. Correlate for the patient's clinical symptoms. Ventricles and sulci are prominent for the patient age. IMPRESSIONS: 1. Subtle white matter change within the brainstem is symmetric and bilateral suggesting this is more likely artifact. Correlate with the patient's clinical symptoms. 2. Acute ischemic areas are not otherwise evident. 3. Extensive chronic appearing periventricular and subcortical white matter changes correlate with th e CT findings.
--- NOTE | 2021-01-15 14:38 | XR ---
EXAMINATION TYPE: XR chest 1V portable DATE OF EXAM: 01/15/2021 COMPARISON: Chest x-ray 01/14/2021 HISTORY: Fever, anoxia TECHNIQUE: Single frontal view of the chest is obtained. FINDINGS: There is no pleural effusion or pneumothorax seen. Patchy density present in the lungs. T he cardiac silhouette size is within normal limits. Patient is rotated and there are overlying leads, exam is expiratory. The osseous structures are intact. IMPRESSION: Expiratory rotated exam, correlate for possible pneumonia versus atelectasis, follow-up recommended.
--- NOTE | 2021-01-15 15:41 | EEG ---
ELECTROENCEPHALOGRAM REPORT DATE OF SERVICE: 01/15/2021 PREAMBLE: This is an 86-year-old female who came with altered mental status. This study is performed to evaluate for any epileptiform activity. EEG FINDINGS: This is a 21-channel portable EEG recording on a patient utilizing 10/20 international system with referential and bipolar montages. Background consists of well-developed, poorly regulated, mixed frequencies of 6 hertz theta mixed with 1-2 hertz generalized delta activity, with some intermittent transient suppressed pattern. Photic driving response was not seen. Different stages of sleep were not seen. No focal or generalized epileptiform activity was seen. EKG channel showed no arrhythmia. IMPRESSION: This is an abnormal EEG due to background slowing of moderate to severe degree. This is suggestive of generalized cerebral dysfunction as can be seen with toxic metabolic encephalopathy or due to diffuse structural brain abnormality. No definitive epileptiform activity was seen. MMODL / IJN: [id number] /
[2021-01-15] MEDS: PIPERACILLIN-TAZOBACTAM 3.375 GM in SODIUM CHLORIDE 0.9% 100 ML IVPB SCH ×2 (16:17→23:03)
--- NOTE | 2021-01-15 16:36 | P.CNNES ---
History of Present Illness Consult date: 01/15/21 Requesting physician: Jona Fuller Reason for Consult: Cerebral anoxia, rule out CVA History of Present Illness: Patient is a 86-year-old female came to the hospital yesterday at 10:21 AM by ambulance for unresponsiveness, found outside the home. Apparently patient lives by herself, but her son checks on her frequently, who lives close to her. Patient was fine the night prior at 8:30 PM when [facility] Patient's son tried to call her this morning and she would not answer. When he went inside at around 8:30 AM, she was laying outside in dirt, uncertain for how long period of time. She had bruises on her legs. She was laying on her side, morning, couldn't speak. Patient was brought to the hospital hypothermic. EMS flow sheet not available in the chart. Vital signs on arrival blood pressure 76/64, pulse rate 142, temperature 90.[address] head showed mild appearing periventricular white matter ischemic changes. CT of the cervical spine showed no acute osseous abnormality of the cervical spine. Advanced degenerative disc changes at C4 5 through C6 7. Uncovertebral joint hypertrophy contributing to foraminal narrowing discussed above. EKG shows sinus rhythm with occasional PVCs. Right bundle branch block. CTA of head showed no intracranial angiographic abnormality. CTA of the neck showed tortuous right carotid artery. There is probably 50% stenosis of the proximal left ICA. Extra of the humerus and forearm negative. 2-D echo showed normal left ventricle size. Mild concentric LVH. EF is 55-60%. Mild aortic valve sclerosis. Trace MR. MRI of the brain was performed which revealed subtle white matter change within the brainstem is symmetric and bilateral suggesting this is more likely artifact. Correlate with patient's clinical symptoms. Acute ischemic areas are not otherwise evident. Extensive chronic appearing periventricular and subcortical white matter changes correlated with the CT findings. Chest x-ray showed expiratory noted exam, correlate for possible pneumonia versus atelectasis. Patient's blood test shows WBC 15.5 hemoglobin 17.5, platelets 217. PT/PTT normal. Sodium 135 potassium 5.7, BUN 24, creatinine 0.95. Hepatic panel with AST 75, ALT 79. Ammonia is mildly elevated 42. CPK is 1568. Troponin is mildly elevated. UA shows negative nitrites and negative leukocyte esterase. Urine drug screen negative. Blood alcohol level negative. Christy virus PCR negative. Review of Systems ROS unobtainable: due to mental status Past Medical History Past Medical History: Cancer, CVA/TIA, Hypertension Additional Past Medical History / Comment(s): skin cancer History of Any Multi-Drug Resistant Organisms: None Reported Past Surgical History: Orthopedic Surgery Additional Past Surgical History / Comment(s): tumor removed rt wrist, rt bunionectomy Past Anesthesia/Blood Transfusion Reactions: No Reported Reaction Past Psychological History: No Psychological Hx Reported Smoking Status: Former smoker Past Alcohol Use History: None Reported Past Drug Use History: None Reported - Past Family History Daughter(s) Family Medical History: Cancer Medications and Allergies Home Medications Medication Instructions Recorded Confirmed Type Aspirin 81 mg PO DAILY 07/01/14 01/14/21 History Metoprolol Tartrate [Lopressor] 100 mg PO BID 07/01/14 01/14/21 History Fish Oil(Unknown Dose) 1 cap PO DAILY 01/14/21 01/14/21 History Multivitamins, Thera [Multivitamin 1 tab PO DAILY 01/14/21 01/14/21 History (formulary)] Naproxen [Naprosyn] 500 mg PO DAILY 01/14/21 01/14/21 History Vitamin D3(Unknown Dose) 1 cap PO DAILY 01/14/21 01/14/21 History Allergies Allergy/AdvReac Type Severity Reaction Status Date / Time hydralazine AdvReac weaky, Verified 01/15/21 08:42 dizzy, nausea Physical Examination - Vital Signs Vital Signs: Vital Signs Temp Pulse Resp BP Pulse Ox 01/15/21 16:00 73 18 160/84 95 01/15/21 15:00 81 17 160/86 95 01/15/21 14:00 74 17 145/76 94 L 01/15/21 13:00 74 19 138/85 93 L 01/15/21 12:00 98.7 F 72 21 134/76 94 L 01/15/21 11:00 79 16 157/88 94 L 01/15/21 10:00 78 20 160/85 95 01/15/21 09:00 81 22 134/68 95 01/15/21 08:00 99.4 F 85 25 H 125/67 95 01/15/21 07:00 87 26 H 150/81 94 L 01/15/21 06:00 89 27 H 144/104 94 L 01/15/21 05:00 91 26 H 158/126 95 01/15/21 04:00 101.0 F H 92 28 H 165/96 94 L 01/15/21 03:00 90 26 H 162/108 93 L 01/15/21 02:00 91 27 H 137/87 91 L 01/15/21 01:00 89 28 H 149/88 94 L 01/15/21 00:28 85 23 132/88 93 L 01/15/21 00:00 99.0 F 86 26 H 141/98 94 L 01/14/21 23:00 87 22 141/106 92 L 01/14/21 22:00 83 27 H 137/119 92 L 01/14/21 21:00 84 23 158/101 92 L 01/14/21 20:00 100.8 F H 81 23 160/119 93 L 01/14/21 19:00 80 22 162/116 96 01/14/21 18:00 82 25 H 157/133 97 01/14/21 17:00 97.8 F 85 24 142/130 97 Intake and Output 01/15/21 01/15/21 01/15/21 06:59 14:59 22:59 Intake Total 1040 1040 130 Output Total 370 375 40 Balance 670 665 90 Intake: IV 910 130 Dextrose 5%-0.45% NaCl 1, 910 130 000 ml @ 130 mls/hr IV . Q7H42M [facility] Rx#:[id number] Intake, IV Titration 1040 130 Amount Dextrose 5%-0.45% NaCl 1, 1040 130 000 ml @ 130 mls/hr IV . Q7H42M [facility] Rx#:[id number] Output: Urine 370 375 40 Other: Voiding Method Indwelling Catheter Indwelling Catheter Indwelling Catheter Weight 87.3 kg On examination patient is an elderly female, in no acute distress. Patient is encephalopathic, in no acute distress. She is keeping eyes closed, snoring. Patient is not on any sedation. On cranial examination pupils are round and reactive to light. Gaze is in the midline. Oculocephalics appears pr esent. Face appears symmetric. Could not check her tongue or palate. Hearing could not be checked. On muscle strength testing patient is not following much commands. Patient did hold her arms up and slowly brought down equally with no asymmetry. Patient moves her arms and legs slightly to painful stimuli equally. Reflexes are 1+, and plantars are withdrawal bilaterally. Per nurse patient w as squeezing right hand less than the left. To me it appears almost equal. Cerebellar functions could not be tested. Sensations to painful stimuli is equal response. Results - Laboratory Findings CBC and BMP: 01/16/21 03:19 01/16/21 03:19 Abnormal Lab Findings: Abnormal Labs 01/14/21 01/14/21 01/14/21 11:14 11:14 11:14 WBC 15.5 H RBC 5.94 H Hgb 17.5 H Hct 53.8 H Neutrophils # 13.7 H Lymphocytes # 0.8 L Monocytes # Sodium 135 L Potassium 5.7 H Carbon Dioxide 18 L BUN 24 H Glucose 117 H POC Glucose (mg/dL) Plasma Lactic Acid Frank Total Bilirubin 1.8 H AST 75 H Ammonia Creatine Kinase 1568 H* Troponin I Urine Appearance Cloudy H Urine Protein 2+ H Urine Glucose (UA) Trace H Urine Ketones 2+ H Urine Blood Large H Amorphous Sediment Rare H Urine Bacteria Occasional H Hyaline Casts 3 H Urine Mucus Rare H 01/14/21 01/14/21 01/14/21 11:14 11:14 11:14 WBC RBC Hgb Hct Neutrophils # Lymphocytes # Monocytes # Sodium Potassium Carbon Dioxide BUN Glucose POC Glucose (mg/dL) 111 H Plasma Lactic Acid Frank Total Bilirubin AST Ammonia 42 H Creatine Kinase Troponin I 0.464 H* Urine Appearance Urine Protein Urine Glucose (UA) Urine Ketones Urine Blood Amorphous Sediment Urine Bacteria Hyaline Casts Urine Mucus 01/15/21 01/15/21 01/15/21 00:08 03:10 03:10 WBC 16.2 H RBC Hgb Hct Neutrophils # 13.9 H Lymphocytes # Monocytes # 1.1 H Sodium 133 L Potassium Carbon Dioxide BUN 28 H Glucose 124 H POC Glucose (mg/dL) 138 H Plasma Lactic Acid Frank Total Bilirubin AST 106 H Ammonia Creatine Kinase Troponin I Urine Appearance Urine Protein Urine Glucose (UA) Urine Ketones Urine Blood Amorphous Sediment Urine Bacteria Hyaline Casts Urine Mucus 01/15/21 01/15/21 01/15/21 07:22 07:29 07:29 WBC RBC Hgb Hct Neutrophils # Lymphocytes # Monocytes # Sodium Potassium Carbon Dioxide BUN Glucose POC Glucose (mg/dL) Plasma Lactic Acid Frank 2.2 H* Total Bilirubin AST Ammonia Creatine Kinase 2874 H* Troponin I 0.559 H* Urine Appearance Urine Protein Urine Glucose (UA) Urine Ketones Urine Blood Amorphous Sediment Urine Bacteria Hyaline Casts Urine Mucus 01/15/21 12:35 WBC RBC Hgb Hct Neutrophils # Lymphocytes # Monocytes # Sodium Potassium Carbon Dioxide BUN Glucose POC Glucose (mg/dL) 111 H Plasma Lactic Acid Frank Total Bilirubin AST Ammonia Creatine Kinase Troponin I Urine Appearance Urine Protein Urine Glucose (UA) Urine Ketones Urine Blood Amorphous Sediment Urine Bacteria Hyaline Casts Urine Mucus Assessment and Plan Assessment: * Altered mental status, exact cause remains unclear. Patient was found outside her [place] [facility], hypothermic, hypotensive, unresponsive, aphasic. CVA was a concern, but MRI of the brain ruled out any stroke. * Possible toxic metabolic encephalopathy at this point. * Left ICA stenosis, 50%. * Rhabdomyolysis * Elevated troponins, considered troponin leak. Plan: * MRI of the brain revealed no acute stroke. Only revealed small vessel disease. * EEG was abnormal due to background slowing of moderate to severe degree. This is suggestive of generalized cerebral dysfunction as can be seen with toxic metabolic encephalopathy, or due to diffuse structural brain abnormality. No definitive epileptiform activity was seen. * Continue aspirin 300 mg rectally. * Patient is spiking temperature. She probably has pneumonia. Consider lumbar puncture if pneumonia would not justify the leukocytosis and high temperature. Patient currently on Zosyn. * We will follow.
[2021-01-15 17:21] LABS: Glucose,Whole Blood 102 mg/dL (75-99)
--- NOTE | 2021-01-15 20:18 | P.HPIM ---
History of Present Illness H&P Date: 01/15/21 Chief Complaint: Altered mental status History of presenting complaint: This is a 86-year-old patient of Dr. Beatty. Patient lives alone. Does use a cane. Her son lives next door. Patient's son saw the patient around 10 PM getting into bed. Next morning patient was found outside the house. In her nightgown. She was simply morning. Patient was hypothermic on arrival to the ER with a temperature of 90.6. Blood pressure was on the lower side. Patient also found to be hyperkalemic, and rhabdomyolysis. Some troponin leak. Urine drug screen was negative. [place] hugger was placed given IV fluids. Admitted in ICU. Patient IV Zosyn. This morning patient is daughter at the bedside. She has not visited the patient for last 10 months because of COVID 19. Patient rather tired lethargic currently. This morning the temperature has come up. Patient unable to give any history currently. Patient had a fever today Review of systems cannot be obtained as patient lethargic Past medical history to include: Arthritis, hypertension Social history: Former smoker. Lives alone. No alcohol. Does use a cane. Son lives next door. Physical examination: VITAL SIGNS: 90.6, 68, 18, 1 44 x 94, 93% on 2 L upon presentation GENERAL: BMI 35.2, laying in bed, lethargic but arousable. EYES: Pupils equal. Conjunctiva normal. HEENT: External appearance of nose and ears normal, oral cavity grossly normal. NECK: JVD unable to assess; masses not palpable. HEART: First and second heart sounds are normal; no edema. LUNGS: Respiratory rate normal; decreased breath sounds. ABDOMEN: Soft, nontender, liver spleen not palpable, no masses palpable. PSYCH: Lethargic not able to assessl. NEUROLOGICAL: [Cranial nerves grossly intact; no facial asymmetry, moving all 4 limbs MUSCULAR skeletal: Evidence of OA LYMPHATICS: No lymph nodes palpable in the axilla and neck INVESTIGATIONS, reviewed in the clinical context: Today: WBC 16.2 hemoglobin 14.8 potassium 4.4 creatinine 1.01 CPK 2874 WBC 15.5 hemoglobin 7.5 platelets 217 potassium 5.7 creatinine 0.95 CPK 1568 Troponin I 0.464, 0.559 UA negative for nitrate and leukoesterase Urine drug screen negative, alcohol less than 10 Coronavirus [PCR)-not detected EKG tracing personally reviewed by me-unable shaky baseline. Sinus rhythm nonspecific ST segment changes Chest x-ray film personally reviewed by me-some scattered infiltrates Assessment and plan: -Bilateral pneumonia with sepsis. Patient initially presenting with severe hypothermia now having fevers. Zosyn started -Acute severe metabolic encephalopathy from above multifactorial -Severe hypothermia on presentation likely from infection. Not improving -Primary osteoarthritis his pain medications when necessary -Acute, rhabdomyolysis secondary to fall. Follow CPK. Hydrate patient -Lactic acidosis both a combination of bipolar and type II. IV fluids -Rule out a stroke as a precipitating cause of the above events. Neurology consulted. Neuro checks. Rule out seizure. -DO NOT RESUSCITATE Care was discussed with the daughter the bedside. On IV fluids IV antibiotics. Consultation to neurology in [employer]. Given the complexity and severity of patient's condition expect the patient to be in the hospital at least for 2 overnights Past Medical History Past Medical History: Cancer, CVA/TIA, Hypertension Additional Past Medical History / Comment(s): skin cancer History of Any Multi-Drug Resistant Organisms: None Reported Past Surgical History: Orthopedic Surgery Additional Past Surgical History / Comment(s): tumor removed rt wrist, rt bunionectomy Past Anesthesia/Blood Transfusion Reactions: No Reported Reaction Past Psychological History: No Psychological Hx Reported Smoking Status: Former smoker Past Alcohol Use History: None Reported Past Drug Use History: None Reported - Past Family History Daughter(s) Family Medical History: Cancer Medications and Allergies Home Medications Medication Instructions Recorded Confirmed Type Aspirin 81 mg PO DAILY 07/01/14 01/14/21 History Metoprolol Tartrate [Lopressor] 100 mg PO BID 07/01/14 01/14/21 History Fish Oil(Unknown Dose) 1 cap PO DAILY 01/14/21 01/14/21 History Multivitamins, Thera [Multivitamin 1 tab PO DAILY 01/14/21 01/14/21 History (formulary)] Naproxen [Naprosyn] 500 mg PO DAILY 01/14/21 01/14/21 History Vitamin D3(Unknown Dose) 1 cap PO DAILY 01/14/21 01/14/21 History Allergies Allergy/AdvReac Type Severity Reaction Status Date / Time hydralazine AdvReac weaky, Verified 01/15/21 08:42 dizzy, nausea Physical Exam Vitals: Vital Signs Temp Pulse Resp BP Pulse Ox 01/15/21 11:00 79 16 157/88 94 L 01/15/21 10:00 78 20 160/85 95 01/15/21 09:00 81 22 134/68 95 01/15/21 08:00 99.4 F 85 25 H 125/67 95 01/15/21 07:00 87 26 H 150/81 94 L 01/15/21 06:00 89 27 H 144/104 94 L 01/15/21 05:00 91 26 H 158/126 95 01/15/21 04:00 101.0 F H 92 28 H 165/96 94 L 01/15/21 03:00 90 26 H 162/108 93 L 01/15/21 02:00 91 27 H 137/87 91 L 01/15/21 01:00 89 28 H 149/88 94 L 01/15/21 00:28 85 23 132/88 93 L 01/15/21 00:00 99.0 F 86 26 H 141/98 94 L 01/14/21 23:00 87 22 141/106 92 L 01/14/21 22:00 83 27 H 137/119 92 L 01/14/21 21:00 84 23 158/101 92 L 01/14/21 20:00 100.8 F H 81 23 160/119 93 L 01/14/21 19:00 80 22 162/116 96 01/14/21 18:00 82 25 H 157/133 97 01/14/21 17:00 97.8 F 85 24 142/130 97 01/14/21 16:05 98.4 F 76 18 136/91 96 01/14/21 15:00 99.0 F 82 20 140/88 97 01/14/21 14:01 97.4 F L 75 18 129/90 95 Intake and Output 01/14/21 01/15/21 01/15/21 22:59 06:59 14:59 Intake Total 910 1040 650 Output Total 795 370 255 Balance 115 670 395 Intake: IV 520 Dextrose 5%-0.45% NaCl 1, 520 000 ml @ 130 mls/hr IV . Q7H42M [facility] Rx#:[id number] Intake, IV Titration 910 1040 130 Amount Dextrose 5%-0.45% NaCl 1, 910 1040 130 000 ml @ 130 mls/hr IV . Q7H42M [facility] Rx#:[id number] Output: Urine 795 370 255 Other: Voiding Method Indwelling Catheter Indwelling Catheter Indwelling Catheter Weight 89.766 kg 87.3 kg Results CBC & Chem 7: 01/15/21 03:10 01/15/21 03:10 Labs: Abnormal Lab Results - Last 24 Hours (Table) 01/15/21 01/15/21 01/15/21 Range/Units 00:08 03:10 03:10 WBC 16.2 H (3.8-10.6) k/uL Neutrophils # 13.9 H (1.3-7.7) k/uL Monocytes # 1.1 H (0-1.0) k/uL Sodium 133 L (137-145) mmol/L BUN 28 H (7-17) mg/dL Glucose 124 H (74-99) mg/dL POC Glucose (mg/dL) 138 H (75-99) mg/dL Plasma Lactic Acid Frank (0.7-2.0) mmol/L AST 106 H (14-36) U/L Creatine Kinase (30-135) U/L Troponin I (0.000-0.034) ng/mL 01/15/21 01/15/21 01/15/21 Range/Units 07:22 07:29 07:29 WBC (3.8-10.6) k/uL Neutrophils # (1.3-7.7) k/uL Monocytes # (0-1.0) k/uL Sodium (137-145) mmol/L BUN (7-17) mg/dL Glucose (74-99) mg/dL POC Glucose (mg/dL) (75-99) mg/dL Plasma Lactic Acid Frank 2.2 H* (0.7-2.0) mmol/L AST (14-36) U/L Creatine Kinase 2874 H* (30-135) U/L Troponin I 0.559 H* (0.000-0.034) ng/mL 01/15/21 Range/Units 12:35 WBC (3.8-10.6) k/uL Neutrophils # (1.3-7.7) k/uL Monocytes # (0-1.0) k/uL Sodium (137-145) mmol/L BUN (7-17) mg/dL Glucose (74-99) mg/dL POC Glucose (mg/dL) 111 H (75-99) mg/dL Plasma Lactic Acid Frank (0.7-2.0) mmol/L AST (14-36) U/L Creatine Kinase (30-135) U/L Troponin I (0.000-0.034) ng/mL Microbiology - Last 24 Hours (Table) 01/14/21 11:14 Blood Culture - Preliminary Blood No Growth after 24 hours
[2021-01-15] MEDS ORDERED: LACTATED RINGERS 1,000 ML IV SCH (20:30)
[2021-01-15] MEDS: ENOXAPARIN 40 MG/0.4 ML SYRINGE SQ SCH (21:19)
[2021-01-15 23:43] LABS: Glucose,Whole Blood 164 mg/dL (75-99)
[2021-01-16 03:58] LABS: Calcium 8.4 mg/dL (8.4-10.2); Potassium 3.6 mmol/L (3.5-5.1); Total Bilirubin 1.2 mg/dL (0.2-1.3); Total Protein 5.6 g/dL (6.3-8.2)
[2021-01-16 04:10] LABS: Basophils % (A) 0 %; Eosinophils % (A) 0 %; HCT 39.7 % (34.0-46.0); HGB 13.5 gm/dL (11.4-16.0); Lymphocytes # (A) 1.1 k/uL (1.0-4.8); Lymphocytes % (A) 12 %; MCH 30.1 pg (25.0-35.0); MCHC 33.9 g/dL (31.0-37.0); MCV 88.9 fL (80.0-100.0); Mean Platelet Volume 8.2; Monocytes # (A) 0.7 k/uL (0-1.0); Monocytes % (A) 8 %; Neutrophils # (A) 7.2 k/uL (1.3-7.7); Neutrophils % (A) 79 %; Platelet Count 154 k/uL (150-450); RBC 4.47 m/uL (3.80-5.40); RDW 13.7 % (11.5-15.5); WBC 9.1 k/uL (3.8-10.6)
[2021-01-16] MEDS: DEXTROSE 5%-0.45% NACL 1,000 ML IV SCH ×2 (05:26→16:09)
--- NOTE | 2021-01-16 06:46 | P.PN ---
Subjective Progress Note Date: 01/16/21 there is an 6-year-old female patient who was apparently found on the ground. The patient was brought into the emergency department. She had altered mentation and she was hypothermic. She was nonconversant and she was confused. The exact timing of the altered mentation versus fall could not be established. patient is known to have previous history of CVA and hypertension. In the ED, she was confused, hypothermic with a temperature of 90.6 and she was given external warming and the temperature subsequently came back to 97.4. She was initially tachycardic and hypotensive with a BP of 76/64 and the patient was given IV fluids and blood pressure improved and stabilized. The patient had an EKG that showed a sinus rhythm with a left anterior fascicular block and some nonspecific inferior leads changes. The white cell count was at 15.5 with a hemoglobin of 17.5 and a platelet count of 217. Sodium was 135, potassium level was 5.7 and the creatinine was 0.95 and a glucose was 117. the patien the patient had a CPK of 1568 with a troponin level was 0.4. UA showed +2 protein, the urine drug screen was negative and the covid 19 testing was also negative. The chest x-ray showed no acute pulmonary process, the computed tomography scan of the head showed no acute abnormalities. The computed tomography scan of the neck showed no osseous abnormality of the cervical spine and there was advanced degenerative disc changes involving C4-C5 and C6-C7 and foraminal narrowing of the lower cervical spine. The x-ray of the forearm and x-ray of the humerus was within normal limits, and a CT angiogram of the brain was done and it showed no intracranial angiographic abnormality. There was a tortuous right carotid probably 50% stenosis of the proximal left internal carotid artery. Accordingly, the patient was admitted to the ICU. The patient was started as pirin mg rectally and the patient was started on D5 half-normal saline at the rate of 130 mL an hour. On today's evaluation of 01/16/2021, the patient has regained her neurologic function significantly and she is communicating. She is A O 1. She underwent an EEG is sedated showed diffuse brain wave slowing and this was consistent with encephalopathy. MRI of the brain also showed diffuse white matter changes. No evidence of any CVA. Neurology is on the case. Exact cause for the underlying neurologic changes are not clear. The patient on MRI was shown to have diffuse and extensive chronic appearing periventricular and subcortical white matter changes. Meanwhile, the patient is still on IV fluids with D5 half-normal at the rate of 1 30 mL an hour. CPK level was on the rise yesterday. After it bumped up to 2874, the level came down to 1419. His serum creatinine today is at 1.1. Serum bicarb is 25, sodium level is at 133, and his CBC is showing no acute abnormalities. The patient is producing adequate amount of urine output. The patient is moving all 4 extremities without any limitation. No headache. No seizure activity. No other significant events overnight. Objective - Vital Signs Vital signs: Vital Signs Temp 98.9 F 01/16/21 04:00 Pulse 75 01/16/21 06:00 Resp 15 01/16/21 06:00 BP 149/57 01/16/21 06:00 Pulse Ox 95 01/16/21 06:00 Intake & Output 01/15/21 01/15/21 01/16/21 06:59 18:59 06:59 Intake Total 1560 1560 1530 Output Total 677 089 1390 Balance 995 820 460 Weight 87.3 kg 87.1 kg Intake: IV 1430 1430 Dextrose 5%-0.45% NaCl 1, 1430 1430 000 ml @ 130 mls/hr IV . Q7H42M AKSHAT Rx#:[id number] Intake, IV Titration 1560 130 100 Amount Dextrose 5%-0.45% NaCl 1, 1560 130 000 ml @ 130 mls/hr IV . Q7H42M AKSHAT Rx#:[id number] Piperacillin-Tazobactam 3 100 .375 gm In Sodium Chloride 0.9% 100 ml @ 25 mls/hr IVPB Q8HR AKSHAT Rx# :[id number] Output: Urine 962 467 8127 Other: Voiding Method Indwelling Catheter Indwelling Catheter Indwelling Catheter - Exam This is a well-developed sec appearing female who is awake and confused AOx1 and the patient is conversing and she is opening up her eyes spontaneously. No focal neurological deficits., She has pupils that are equal and reactive to light. No facial asymmetry. No Babinski. No clonus. Reflexes are equal and symmetrical in all 4 extremities. Limitations: altered mental status, physical limitation General appearance: alert, lethargic Head exam: Present: other (Some abrasion seen to the forehead) Eye exam: Present: normal appearance, PERRL, EOMI. Absent: scleral icterus, conjunctival injection, periorbital swelling ENT exam: Present: mucous membranes dry Neck exam: Present: normal inspection, full ROM, other (No stridor JVD or bruits). Absent: tenderness, meningismus, lymphadenopathy Respiratory exam: Present: normal lung sounds bilaterally. Absent: respiratory distress, wheezes, rales, rhonchi, stridor Cardiovascular Exam: Present: regular rate, tachycardia GI/Abdominal exam: Present: soft, normal bowel sounds. Absent: distended, tenderness, guarding, rebound, rigid Rectal exam: Present: normal inspection Extremities exam: Present: other (Evidence of pressure sores on the left medial metatarsal phalangeal joint and also the dorsal aspect of the toes on the right as well as the lower extremities.) Patient has areas of bruising over the left knee, right knee laterally, toes bilaterally. Skin exam: Present: dry, pallor (Cool the touch). Absent: warm - Labs CBC & Chem 7: 01/16/21 03:19 01/16/21 03:19 Labs: Abnormal Lab Results - Last 24 Hours (Table) 01/15/21 01/15/21 01/15/21 Range/Units 07:22 07:29 07:29 Sodium (137-145) mmol/L BUN (7-17) mg/dL Creatinine (0.52-1.04) mg/dL Glucose (74-99) mg/dL POC Glucose (mg/dL) (75-99) mg/dL Plasma Lactic Acid Frank 2.2 H* (0.7-2.0) mmol/L AST (14-36) U/L ALT (4-34) U/L Creatine Kinase 2874 H* (30-135) U/L Troponin I 0.559 H* (0.000-0.034) ng/mL Total Protein (6.3-8.2) g/dL Albumin (3.5-5.0) g/dL 01/15/21 01/15/21 01/15/21 Range/Units 12:35 17:20 23:41 Sodium (137-145) mmol/L BUN (7-17) mg/dL Creatinine (0.52-1.04) mg/dL Glucose (74-99) mg/dL POC Glucose (mg/dL) 111 H 102 H 164 H (75-99) mg/dL Plasma Lactic Acid Frank (0.7-2.0) mmol/L AST (14-36) U/L ALT (4-34) U/L Creatine Kinase (30-135) U/L Troponin I (0.000-0.034) ng/mL Total Protein (6.3-8.2) g/dL Albumin (3.5-5.0) g/dL 01/16/21 Range/Units 03:19 Sodium 133 L (137-145) mmol/L BUN 23 H (7-17) mg/dL Creatinine 1.10 H (0.52-1.04) mg/dL Glucose 130 H (74-99) mg/dL POC Glucose (mg/dL) (75-99) mg/dL Plasma Lactic Acid Frank (0.7-2.0) mmol/L AST 84 H (14-36) U/L ALT 35 H (4-34) U/L Creatine Kinase 1490 H* (30-135) U/L Troponin I (0.000-0.034) ng/mL Total Protein 5.6 L (6.3-8.2) g/dL Albumin 3.0 L (3.5-5.0) g/dL Microbiology - Last 24 Hours (Table) 01/14/21 11:14 Blood Culture - Preliminary Blood No Growth after 24 hours Assessment and Plan Plan: 1 acute altered mental status, currently under investigation. Exact etiology not clear. CAT scan of the brain is negative. CT angiogram of the brain was also negative with limited stenosis of the left carotid artery. EEG of the brain showed no evidence of any seizures. MRI of the brain showed diffuse periventricular white matter disease, likely chronic without evidence of any acute abnormalities. Exact cause for encephalopathy is not clear. Could be related to hypoxemia or hypothermia. She is gradually improving. She is conversing. She is awake and oriented 1. 2 acute hypothermia, recovered, the body temperature is normal and the cultures of been all negative for now 3 acute hypotension, improved with fluids, 4 acute rhabdomyolysis CPK levels are improving 5 history of hypertension 6 mild leukocytosis, likely reactive, the white cell count is improving is down to 9.1 from 16 7 mild anion gap metabolic acidosis, recovered, recovered and his current serum bicarb is 25 8 troponin leak, without any acute EKG changes to suggest acute myocardial infarction Plan Continue IV fluids and 75cc/hr Patient is producing adequate amount of urine output Monitor the CPK , and the levels are dropping for now Neurology consultation is appreciated MRI of the brain is noted EEG of the brain is noted a baseline echocardiogram, echocardiogram was completed and it showed a preserved LV function with an ejection fraction of 55-60% and there was no valvular abnormalities. Monitor fever pattern, no antibiotic coverage for now We'll continue to follow, and the patient will be offered a swallow evaluation of the bedside and possibly some diet today and following that she can be transferred out of the intensive care unit.
[2021-01-16] MEDS ORDERED: POTASSIUM CHLORIDE ER 20 MEQ TAB.ER PO SCH (07:00)
[2021-01-16] MEDS: PIPERACILLIN-TAZOBACTAM 3.375 GM in SODIUM CHLORIDE 0.9% 100 ML IVPB SCH ×3 (09:44→23:19)
[2021-01-16] MEDS: ENOXAPARIN 40 MG/0.4 ML SYRINGE SQ SCH (09:44)
--- NOTE | 2021-01-16 10:51 | P.PN ---
Subjective Progress Note Date: 01/16/21 HISTORY OF PRESENT ILLNESS: 01/15/2021 This is a 86 year old female with a past medical history significant for hypertension and CVA with no residual deficits. it is unknown if the patient follows with a claims associate. We have been asked to see the patient in consultation for elevated troponin. Patient examined at the bedside in the intensive care unit. Patient is lethargic and unable to provide any history. majority of HPI obtained from EMR and nursing staff. Apparently, the patient lives by herself and is usually fairly independent. Her son found her outside on the ground with altered mentation. Patient was found to be hypotensive and hypothermic upon arrival to the ER. She was treated with IV fluids and admitted to the ICU. Patient is currently hemodynamically stable without vasopressors. EKG reveals sinus rhythm with PVCs. Right bundle-branch block. Left anterior fascicular block. Bifascicular block. Chest xray no acute pulmonary process CT head and cervical spine: mild appearing periventricular white matter ischemic changes. no acute osseous abnormality of cervical spine. Advanced degenerative disc changes C4-5 through C67. Uncovertebral joint hypertrophy contributing to foraminal narrowing. Right forearm x-ray: Negative exam. No fracture seen. Right humerus xray: Negative exam. No fracture seen. CTA brain: no intracranial angiographic abnormality. Torturous right carotid artery. Probably 50% stenosis of the proximal left internal carotid artery. Laboratory data: WBC 16.2. Hemoglobin 14.8. Platelet count 199. Sodium 133. Potassium 4.4. BUN 28. Creatinine 1.01. Lactic acid 2.2. Creatinine kinase 1568. Repeat 2874. Troponin 0.464. 0.559 Current home cardiac medications include aspirin 81mg daily and metoprolol tartrate 100 mg twice a day 01/16/2021 Patient examined this morning in the ICU. Patient is more awake today and able to communicate. She is a/o x 1. She denies chest pain or pressure. She denies shortness of breath. MRI of the brain was completed which was negative for CVA. No arrhythmias noted on telemetry. Patient's blood pressure is running in the 160s. Echocardiogram completed revealed ejection fraction 55-60% and trace mitral regurgitation PHYSICAL EXAM: VITAL SIGNS: Reviewed. GENERAL: Well-developed in no acute distress. Lethargic. HEENT: Head is normocephalic. Pupils are equal, round. Sclerae anicteric. Mucous membranes of the mouth are moist. Neck supple. No JVD or thyromegaly LUNGS: Respirations even and unlabored. Lungs diminished bilaterally. HEART: Regular rate and rhythm. S1 and S2 heard. EXTREMITIES: No clubbing or cyanosis. Peripheral pulses intact. No lower extr emity edema. Patient with multiple abrasions to bilateral lower extremities ASSESSMENT: Altered mental status s/p being down on the ground, etiology unclear Hypotension, improved with IVF Hypothermia Acute rhabdomyolysis Leukocytosis Abnormal troponins, not suggestive of myocardial injury Elevated lactic acid Hypertension History of CVA PLAN: Continue ICU management per Dr. Burr Continue telemetry monitoring Resume home dose of aspirin and metoprolol. Monitor blood pressure Further recommendations pending patient course Nurse practitioner note has been reviewed by physician. Signing provider agrees with the documented findings, assessment, and plan of care. Objective - Vital Signs Vital signs: Vital Signs Temp 97.9 F 01/16/21 09:00 Pulse 96 01/16/21 10:00 Resp 17 01/16/21 10:00 BP 163/85 01/16/21 10:00 Pulse Ox 91 L 01/16/21 10:00 Intake & Output 01/15/21 01/16/21 01/16/21 18:59 06:59 18:59 Intake Total 1560 1530 310 Output Total 740 1070 380 Balance 820 460 -70 Weight 87.1 kg Intake: IV 1430 1430 310 Dextrose 5%-0.45% NaCl 1, 1430 1430 210 000 ml @ 70 mls/hr IV . [id number] AKSHAT Rx#:[id number] Piperacillin-Tazobactam 3 100 .375 gm In Sodium Chloride 0.9% 100 ml @ 25 mls/hr IVPB Q8HR [facility] Rx# :[id number] Intake, IV Titration 130 100 Amount Dextrose 5%-0.45% NaCl 1, 130 000 ml @ 70 mls/hr IV . [id number] [facility]AT Rx#:[id number] Piperacillin-Tazobactam 3 100 .375 gm In Sodium Chloride 0.9% 100 ml @ 25 mls/hr IVPB Q8HR [facility]AT Rx# :[id number] Output: Urine 740 1070 380 Other: Voiding Method Indwelling Catheter Indwelling Catheter Indwelling Catheter - Labs CBC & Chem 7: 01/16/21 03:19 01/16/21 03:19 Labs: Abnormal Lab Results - Last 24 Hours (Table) 01/15/21 01/15/21 01/15/21 Range/Units 12:35 17:20 23:41 Sodium (137-145) mmol/L BUN (7-17) mg/dL Creatinine (0.52-1.04) mg/dL Glucose (74-99) mg/dL POC Glucose (mg/dL) 111 H 102 H 164 H (75-99) mg/dL AST (14-36) U/L ALT (4-34) U/L Creatine Kinase (30-135) U/L Total Protein (6.3-8.2) g/dL Albumin (3.5-5.0) g/dL 01/16/21 Range/Units 03:19 Sodium 133 L (137-145) mmol/L BUN 23 H (7-17) mg/dL Creatinine 1.10 H (0.52-1.04) mg/dL Glucose 130 H (74-99) mg/dL POC Glucose (mg/dL) (75-99) mg/dL AST 84 H (14-36) U/L ALT 35 H (4-34) U/L Creatine Kinase 1490 H* (30-135) U/L Total Protein 5.6 L (6.3-8.2) g/dL Albumin 3.0 L (3.5-5.0) g/dL Microbiology - Last 24 Hours (Table) 01/14/21 11:14 Blood Culture - Preliminary Blood No Growth after 24 hours
[2021-01-16] MEDS: ASPIRIN 81 MG PO SCH (11:43)
[2021-01-16] MEDS: METOPROLOL TARTRATE 50 MG TAB PO SCH ×2 (11:43→20:36)
--- NOTE | 2021-01-16 12:48 | P.PN ---
Subjective Progress Note Date: 01/16/21 Patient was seen for a follow-up. Patient is doing much better today. Patient denies headache. Patient has much improved. Denies any visual symptoms. Patient does not remember details what happened to her, how she came to the hospital. Does not remember going outside her home before she lost awareness. No previous history of seizures. Objective - Vital Signs Vital signs: Vital Signs Temp 99.1 F 01/16/21 12:00 Pulse 112 H 01/16/21 12:00 Resp 20 01/16/21 12:00 BP 181/110 01/16/21 12:00 Pulse Ox 92 L 01/16/21 12:00 Intake & Output 01/15/21 01/16/21 01/16/21 18:59 06:59 18:59 Intake Total 1560 1530 310 Output Total 740 1070 530 Balance 820 460 -220 Weight 87.1 kg Intake: IV 1430 1430 310 Dextrose 5%-0.45% NaCl 1, 1430 1430 210 000 ml @ 70 mls/hr IV . [id number] AK[facility]AT Rx#:[id number] Piperacillin-Tazobactam 3 100 .375 gm In Sodium Chloride 0.9% 100 ml @ 25 mls/hr IVPB Q8HR [facility] Rx# :[id number] Intake, IV Titration 130 100 Amount Dextrose 5%-0.45% NaCl 1, 130 000 ml @ 70 mls/hr IV . [id number] AKSHAT Rx#:[id number] Piperacillin-Tazobactam 3 100 .375 gm In Sodium Chloride 0.9% 100 ml @ 25 mls/hr IVPB Q8HR [facility] Rx# :[id number] Output: Urine 740 1070 530 Other: Voiding Method Indwelling Catheter Indwelling Catheter Indwelling Catheter - Exam Patient is fully alert and awake. Still with some more slow mentation, but very pleasant, very observant, able to tell that the nurse is . She told me her age 86 and that she is born on [birth year]. Speech is clear, with mild dysarthria. No aphasia. On cranial nerve examination pupils are round and reacting to light visual corona are full, face is symmetric. Tongue protrudes the midline. Patient has tongue bite trav on the right side. On muscle strength testing there is no drift and the strength is normal in both arms. In the lower extremities and ankles are normal. Her hip flexion are weak bilaterally about 3-3+. Reflexes are diminished and plantars are flat. She still has bruises. No ataxia for [id number] testing. - Labs CBC & Chem 7: 01/16/21 03:19 01/16/21 03:19 Labs: Abnormal Lab Results - Last 24 Hours (Table) 01/15/21 01/15/21 01/16/21 Range/Units 17:20 23:41 03:19 Sodium 133 L (137-145) mmol/L BUN 23 H (7-17) mg/dL Creatinine 1.10 H (0.52-1.04) mg/dL Glucose 130 H (74-99) mg/dL POC Glucose (mg/dL) 102 H 164 H (75-99) mg/dL AST 84 H (14-36) U/L ALT 35 H (4-34) U/L Creatine Kinase 1490 H* (30-135) U/L Total Protein 5.6 L (6.3-8.2) g/dL Albumin 3.0 L (3.5-5.0) g/dL Microbiology - Last 24 Hours (Table) 01/14/21 11:14 Blood Culture - Preliminary Blood No Growth after 24 hours Assessment and Plan Assessment: * Altered mental status, exact cause remains unclear. Patient was found outside her home in [facility], hypothermic, hypotensive, unresponsive, aphasic. CVA was a concern, but MRI of the brain ruled out any stroke. Patient's mentation has much improved. Exam is nonfocal. * Possible toxic metabolic encephalopathy at this point. * Left ICA stenosis, 50%. * Rhabdomyolysis * Elevated troponins, considered as troponin leak. Plan: * Patient's mentation has much improved. She denies any headache. Examination is nonfocal. * MRI of the brain revealed no acute stroke. Only revealed small vessel disease. * EEG was abnormal due to background slowing of moderate to severe degree. This is suggestive of generalized cerebral dysfunction as can be seen with toxic metabolic encephalopathy, or due to diffuse structural brain abnormality. No definitive epileptiform activity was seen. * Continue aspirin regimen. * Cardiology on board, watching for any arrhythmias.
--- NOTE | 2021-01-17 00:41 | P.PN ---
Progress Note - Text Progress Note Date: 01/16/21 Chief Complaint: Altered mental status History of presenting complaint: This is a 86-year-old patient of Dr. Beatty. Patient lives alone. Does use a cane. Her son lives next door. Patient's son saw the patient around 10 PM getting into bed. Next morning patient was found outside the house. In her nightgown. She was simply morning. Patient was hypothermic on arrival to the ER with a temperature of 90.6. Blood pressure was on the lower side. Patient also found to be hyperkalemic, and rhabdomyolysis. Some troponin leak. Urine drug screen was negative. Virginia hugger was placed given IV fluids. Admitted in ICU. Patient IV Zosyn. This morning patient is daughter at the bedside. She has not visited the patient for last 10 months because of COVID 19. Patient rather tired lethargic currently. This morning the temperature has come up. Patient unable to give any history currently. Patient had a fever today Admitted with bilateral pneumonia with sepsis, severe hypothermia, severe metabolic encephalopathy, acute rhabdomyolysis, lactic acidosis. Stroke was ruled out. Placed an IV Zosyn. Today: ICU: Sitting up in a chair. Able to answer some questions. Son is at the bedside Review of systems cannot be obtained as patient still somewhat delirious Past medical history to include: Arthritis, hypertension Social history: Former smoker. Lives alone. No alcohol. Does use a cane. Son lives next door. Physical examination: VITAL SIGNS: 99.1, 112, 20, 140s with 67, 92% room air GENERAL: BMI 35.2, sitting up in a chair, slightly delirious EYES: Pupils equal. Conjunctiva normal. NECK: JVD unable to assess; masses not palpable. HEART: First and second heart sounds are normal; no edema. LUNGS: Respiratory rate normal; decreased breath sounds. ABDOMEN: Soft, nontender, liver spleen not palpable, no masses palpable. PSYCH: We will answer occasional question NEUROLOGICAL: [Cranial nerves grossly intact; no facial asymmetry, moving all 4 limbs MUSCULAR skeletal: Evidence of OA INVESTIGATIONS, reviewed in the clinical context: January 16: WBC 9.1 hemoglobin 13.5 creatinine 1.10 CPK 1490 procalcitonin 2.02 Today: WBC 16.2 hemoglobin 14.8 potassium 4.4 creatinine 1.01 CPK 2874 WBC 15.5 hemoglobin 7.5 platelets 217 potassium 5.7 creatinine 0.95 CPK 1568 Troponin I 0.464, 0.559 UA negative for nitrate and leukoesterase Urine drug screen negative, alcohol less than 10 Coronavirus [PCR)-not detected EKG tracing personally reviewed by me-unable shaky baseline. Sinus rhythm nonspecific ST segment changes Chest x-ray film personally reviewed by me-some scattered infiltrates EEG: Evidence of encephalopathy. No obvious seizure activity noted Assessment and plan: -Bilateral pneumonia with sepsis. Patient initially presenting with severe hypothermia now having fevers. Zosyn started -Acute severe metabolic encephalopathy from above multifactorial-slowly improving -Severe hypothermia on presentation likely from infection. Corrected -Primary osteoarthritis his pain medications when necessary -Acute, rhabdomyolysis secondary to fall. Follow CPK. IV hydration -Lactic acidosis both a combination of bipolar and type II. IV fluids -Stroke ruled out -DO NOT RESUSCITATE Care was discussed with the son of the bedside. Questions answered. Continue with antibiotics and fluids and encourage oral intake
[2021-01-17] MEDS: DEXTROSE 5%-0.45% NACL 1,000 ML IV SCH (03:34)
[2021-01-17 04:24] LABS: HGB 13.1 gm/dL (11.4-16.0); MCH 29.1 pg (25.0-35.0); MCHC 32.7 g/dL (31.0-37.0); MCV 89.1 fL (80.0-100.0); Mean Platelet Volume 8.6; Platelet Count 173 k/uL (150-450); RBC 4.49 m/uL (3.80-5.40); RDW 13.8 % (11.5-15.5); WBC 8.4 k/uL (3.8-10.6)
[2021-01-17 04:53] LABS: Potassium 4.1 mmol/L (3.5-5.1)
--- NOTE | 2021-01-17 06:39 | P.PN ---
Subjective Progress Note Date: 01/17/21 there is an 6-year-old female patient who was apparently found on the ground. The patient was brought into the emergency department. She had altered mentation and she was hypothermic. She was nonconversant and she was confused. The exact timing of the altered mentation versus fall could not be established. patient is known to have previous history of CVA and hypertension. In the ED, she was confused, hypothermic with a temperature of 90.6 and she was given external warming and the temperature subsequently came back to 97.4. She was initially tachycardic and hypotensive with a BP of 76/64 and the patient was given IV fluids and blood pressure improved and stabilized. The patient had an EKG that showed a sinus rhythm with a left anterior fascicular block and some nonspecific inferior leads changes. The white cell count was at 15.5 with a hemoglobin of 17.5 and a platelet count of 217. Sodium was 135, potassium level was 5.7 and the creatinine was 0.95 and a glucose was 117. the patien the patient had a CPK of 1568 with a troponin level was 0.4. UA showed +2 protein, the urine drug screen was negative and the covid 19 testing was also negative. The chest x-ray showed no acute pulmonary process, the computed tomography scan of the head showed no acute abnormalities. The computed tomography scan of the neck showed no osseous abnormality of the cervical spine and there was advanced degenerative disc changes involving C4-C5 and C6-C7 and foraminal narrowing of the lower cervical spine. The x-ray of the forearm and x-ray of the humerus was within normal limits, and a CT angiogram of the brain was done and it showed no intracranial angiographic abnormality. There was a tortuous right carotid probably 50% stenosis of the proximal left internal carotid artery. Accordingly, the patient was admitted to the ICU. The patient was started as pirin mg rectally and the patient was started on D5 half-normal saline at the rate of 130 mL an hour. On today's evaluation of 01/16/2021, the patient has regained her neurologic function significantly and she is communicating. She is A O 1. She underwent an EEG is sedated showed diffuse brain wave slowing and this was consistent with encephalopathy. MRI of the brain also showed diffuse white matter changes. No evidence of any CVA. Neurology is on the case. Exact cause for the underlying neurologic changes are not clear. The patient on MRI was shown to have diffuse and extensive chronic appearing periventricular and subcortical white matter changes. Meanwhile, the patient is still on IV fluids with D5 half-normal at the rate of 1 30 mL an hour. CPK level was on the rise yesterday. After it bumped up to 2874, the level came down to 1419. His serum creatinine today is at 1.1. Serum bicarb is 25, sodium level is at 133, and his CBC is showing no acute abnormalities. The patient is producing adequate amount of urine output. The patient is moving all 4 extremities without any limitation. No headache. No seizure activity. No other significant events overnight. 01/17/2021 I'm seeing the patient for a follow-up. The patient was gradually recovering her neurologic function and she was conversing and she was becoming more interactive yesterday. On today's evaluation, she continues to improve and she is back to or 83. She is pretty much recovered. No focal neurological deficits. No seizure activity. MRI of the brain showed diffuse white matter changes. Neurologist on the case. Meanwhile, she was receiving IV fluids regarding her rhabdomyolysis. His CPK level is down to 1490. No renal failure. No direct right abnormalities. Potassium is normal. Hemoglobin is at 13.1. Meanwhile, the patient was also placed on empiric antibiotic coverage with IV Zosyn. She is afebrile. Her hypothermia has recovered. She is on D5 half- normal saline at the rate of 70 mL an hour. No issues with blood pressure. No issues with urine output. No other significant events otherwise for yesterday. She is awaiting a bed on the medical floor. She is tolerating her diet. Objective - Vital Signs Vital signs: Vital Signs Temp 98 F 01/16/21 20:00 Pulse 70 01/16/21 20:00 Resp 19 01/16/21 15:00 BP 153/81 01/16/21 20:00 Pulse Ox 93 L 01/16/21 22:13 Intake & Output 01/16/21 01/16/21 01/17/21 06:59 18:59 06:59 Intake Total 1530 760 Output Total 1070 805 Balance 460 -45 Weight 87.1 kg 88.5 kg Intake: IV 1430 760 Dextrose 5%-0.45% NaCl 1, 1430 560 000 ml @ 70 mls/hr IV . [id number] [facility] Rx#:[id number] Piperacillin-Tazobactam 3 200 .375 gm In Sodium Chloride 0.9% 100 ml @ 25 mls/hr IVPB Q8HR [facility] Rx# :[id number] Intake, IV Titration 100 Amount Piperacillin-Tazobactam 3 100 .375 gm In Sodium Chloride 0.9% 100 ml @ 25 mls/hr IVPB Q8HR [facility] Rx# :[id number] Output: Urine 1070 805 Other: Voiding Method Indwelling Catheter Indwelling Catheter Bedside Commode Bedpan - Exam This is a well-developed sec appearing female who is awake and confused AOx3 and the patient is conversing and she is opening up her eyes spontaneously. No focal neurological deficits., She has pupils that are equal and reactive to light. No facial asymmetry. No Babinski. No clonus. Reflexes are equal and symmetrical in all 4 extremities. Limitations: altered mental status, physical limitation General appearance: alert, lethargic Head exam: Present: other (Some abrasion seen to the forehead) Eye exam: Present: normal appearance, PERRL, EOMI. Absent: scleral icterus, conjunctival injection, periorbital swelling ENT exam: Present: mucous membranes dry Neck exam: Present: normal inspection, full ROM, other (No stridor JVD or bruits). Absent: tenderness, meningismus, lymphadenopathy Respiratory exam: Present: normal lung sounds bilaterally. Absent: respiratory distress, wheezes, rales, rhonchi, stridor Cardiovascular Exam: Present: regular rate, tachycardia GI/Abdominal exam: Present: soft, normal bowel sounds. Absent: distended, tenderness, guarding, rebound, rigid Rectal exam: Present: normal inspection Extremities exam: Present: other (Evidence of pressure sores on the left medial metatarsal phalangeal joint and also the dorsal aspect of the toes on the right as well as the lower extremities.) Patient has areas of bruising over the left knee, right knee laterally, toes bilaterally. Skin exam: Present: dry, pallor (Cool the touch). Absent: warm - Labs CBC & Chem 7: 01/17/21 03:30 01/17/21 03:30 Labs: Abnormal Lab Results - Last 24 Hours (Table) 01/16/21 01/17/21 Range/Units 03:19 03:30 Sodium 135 L (137-145) mmol/L BUN 19 H (7-17) mg/dL Procalcitonin 2.02 H (0.02-0.09) ng/mL Microbiology - Last 24 Hours (Table) 01/14/21 11:14 Blood Culture - Preliminary Blood No Growth after 48 hours Assessment and Plan Plan: 1 acute altered mental status, currently under investigation. Exact etiology not clear. CAT scan of the brain is negative. CT angiogram of the brain was also negative with limited stenosis of the left carotid artery. EEG of the brain showed no evidence of any seizures. MRI of the brain showed diffuse periventricular white matter disease, likely chronic without evidence of any acute abnormalities. Exact cause for encephalopathy is not clear. He was, the patient completely recovered her mentation and she is back to normal and she is or OA3. No focal neurological deficit. Consider hypothermia causing her altered mentation. 2 acute hypothermia, recovered, the body temperature is normal and the cultures of been all negative for now 3 acute hypotension, improved with fluids, recovered, CPKs down to 1419 improving 4 acute rhabdomyolysis CPK levels are improving 5 history of hypertension 6 mild leukocytosis, likely reactive, , and the white cell count is down to 8.4 7 mild anion gap metabolic acidosis, recovered, recovered and his current serum bicarb is 24 8 troponin leak, without any acute EKG changes to suggest acute myocardial infarction Plan Continue IV fluids and 75cc/hr Patient is producing adequate amount of urine output Monitor the CPK , and the levels are dropping for now Neurology consultation is appreciated MRI of the brain is noted EEG of the brain is noted Abaseline echocardiogram, echocardiogram was completed and it showed a preserved LV function with an ejection fraction of 55-60% and there was no valvular abnormalities. Monitor fever pattern,, no indication of an underlying infection. Pro- calcitonin level was 2.02 and the patient was started on empiric antibiotic coverage with Zosyn. Blood cultures negative thus far. Repeat pro-calcitonin level Transfer the patient out of the intensive care unit. She was able to swallow and she is tolerating diet.
[2021-01-17] MEDS: ASPIRIN 81 MG PO SCH (09:04)
[2021-01-17] MEDS: METOPROLOL TARTRATE 50 MG TAB PO SCH (09:04)
[2021-01-17] MEDS: ENOXAPARIN 40 MG/0.4 ML SYRINGE SQ SCH (09:04)
[2021-01-17] MEDS ORDERED: lisinopriL 10 MG TAB PO SCH (09:15)
[2021-01-17] MEDS: PIPERACILLIN-TAZOBACTAM 3.375 GM in SODIUM CHLORIDE 0.9% 100 ML IVPB SCH (10:23)
--- NOTE | 2021-01-17 10:53 | P.PN ---
Subjective Progress Note Date: 01/17/21 HISTORY OF PRESENT ILLNESS: 01/15/2021 This is a 86 year old female with a past medical history significant for hypertension and CVA with no residual deficits. 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 We have been asked to see the patient in consultation for elevated troponin. Patient examined at the bedside in the intensive care unit. Patient is lethargic and unable to provide any history. majority of HPI obtained from EMR and nursing staff. Apparently, the patient lives by herself and is usually fairly independent. Her son found her outside on the ground with altered mentation. Patient was found to be hypotensive and hypothermic upon arrival to the ER. She was treated with IV fluids and admitted to the ICU. Patient is currently hemodynamically stable without vasopressors. EKG reveals sinus rhythm with PVCs. Right bundle-branch block. Left anterior fascicular block. Bifascicular block. Chest xray no acute pulmonary process CT head and cervical spine: mild appearing periventricular white matter ischemic changes. no acute osseous abnormality of cervical spine. Advanced degenerative disc changes C4-5 through C67. Uncovertebral joint hypertrophy contributing to foraminal narrowing. Right forearm x-ray: Negative exam. No fracture seen. Right humerus xray: Negative exam. No fracture seen. CTA brain: no intracranial angiographic abnormality. Torturous right carotid artery. Probably 50% stenosis of the proximal left internal carotid artery. Laboratory data: WBC 16.2. Hemoglobin 14.8. Platelet count 199. Sodium 133. Potassium 4.4. BUN 28. Creatinine 1.01. Lactic acid 2.2. Creatinine kinase 1568. Repeat 2874. Troponin 0.464. 0.559 Current home cardiac medications include aspirin 81mg daily and metoprolol tartrate 100 mg twice a day 01/16/2021 Patient examined this morning in the ICU. Patient is more awake today and able to communicate. She is a/o x 1. She denies chest pain or pressure. She denies shortness of breath. MRI of the brain was completed which was negative for CVA. No arrhythmias noted on telemetry. Patient's blood pressure is running in the 160s. Echocardiogram completed revealed ejection fraction 55-60% and trace mitral regurgitation 01/17/2021 Patient examined this morning in the ICU. She is sitting up in the chair. She is awake and alert. She denies chest pain or pressure. Denies shortness of breath. She denies dizziness or lightheadedness. She reports generalized weakness and aches and pains. Blood pressure this morning remains elevated despite resuming her home dose of metoprolol yesterday. PHYSICAL EXAM: VITAL SIGNS: Reviewed. GENERAL: Well-developed in no acute distress. HEENT: Head is normocephalic. Pupils are equal, round. Sclerae anicteric. Mucous membranes of the mouth are moist. Neck supple. No JVD or thyromegaly LUNGS: Respirations even and unlabored. Lungs diminished bilaterally. HEART: Regular rate and rhythm. S1 and S2 heard. EXTREMITIES: No clubbing or cyanosis. Peripheral pulses intact. No lower extremity edema. Patient with multiple abrasions to bilateral lower extremities ASSESSMENT: Altered mental status s/p being down on the ground, etiology unclear Hypotension, improved with IVF Hypothermia Acute rhabdomyolysis Leukocytosis Abnormal troponins, not suggestive of myocardial injury Elevated lactic acid Hypertension History of CVA PLAN: Continue ICU management per Dr. Burr Continue telemetry monitoring Continue aspirin and metoprolol Begin lisinopril 10 mg daily Continue to monitor blood pressure Further recommendations pending patient course Nurse practitioner note has been reviewed by physician. Signing provider agrees with the documented findings, assessment, and plan of care. Objective - Vital Signs Vital signs: Vital Signs Temp 97.8 F 01/17/21 08:00 Pulse 85 01/17/21 08:00 Resp 18 01/17/21 08:00 BP 164/88 01/17/21 08:00 Pulse Ox 95 01/17/21 08:00 Intake & Output 01/16/21 01/17/21 01/17/21 18:59 06:59 18:59 Intake Total 760 940 Output Total 805 Balance -45 940 Weight 88.5 kg Intake: IV 760 940 Dextrose 5%-0.45% NaCl 1, 560 840 000 ml @ 70 mls/hr IV . [id number] [facility] Rx#:[id number] Piperacillin-Tazobactam 3 200 100 .375 gm In Sodium Chloride 0.9% 100 ml @ 25 mls/hr IVPB Q8HR [facility] Rx# :[id number] Output: Urine 805 Other: Voiding Method Indwelling Catheter Bedside Commode Bedside Commode Bedpan Bedpan # Voids 3 # Bowel Movements 3 - Labs CBC & Chem 7: 01/17/21 03:30 01/17/21 03:30 Labs: Abnormal Lab Results - Last 24 Hours (Table) 01/16/21 01/17/21 Range/Units 03:19 03:30 Sodium 135 L (137-145) mmol/L BUN 19 H (7-17) mg/dL Procalcitonin 2.02 H (0.02-0.09) ng/mL Microbiology - Last 24 Hours (Table) 01/14/21 11:14 Blood Culture - Preliminary Blood No Growth after 48 hours
--- NOTE | 2021-01-17 13:11 | CDI ---
Documentation Clarification Form Date: 01/17/2021 12:37:45 PM From: Kerri Schmidt RN, CCDS Admit Date: 01/14/2021 02:44:00 PM Patient Name: Ewa Cody Visit Number: [id number] Discharge Date: ATTENTION: The Clinical Documentation Specialists (CDI) and [facility] Coding Staff appreciate your assistance in clarifying documentation. Please respond to the clarification below the line at the bottom and electronically sign. The CDI & [facility] Coding staff will review the response and follow-up if needed. Please note: Queries are made part of the Legal Health Record. If you have any questions, please contact the author of this message via ITS. Dr. Chapo Villa Please render your impression on acute rhabdomyolysis secondary to fall. History/Risk Factors: Hypertension, CVA Clinical Indicators: 86-year-old female present to ED on 01/15/20. She was found on the ground outside. Unknown amount of time, family believes she may have been out there all night. She had alter mental status and was hypothermic. 01/14 Initial vital signs: 76/64 142 18, 144/94 68 18 90.6 93 % RA 01/14 EKG; sinus rhythm (sinus rhythm with occasional PVCs rate 70 01/14 Labs: WBC 155, HGB 17.5, HCT 53.8, K+ 5.7 BUN 24, CR 0.95, Ammonia 42, and Creatine Kinase 1568 Treatment: ICU/Telemetry monitoring Monitor I/O Monitor CBC, Electrolytes, CPK, Daily .9NS 1,000 @130 MLS/HR (01/14) .9NS 1,000 MLS bolus (01/14) D5/NS 5 % dextrose @ 70 MLS/HR 01/14-01/17) In your professional opinion, can you please clarify the etiology of the acute rhabdomyolysis due to fall? Traumatic rhabdomyolysis due to fall Traumatic rhabdomyolysis due to prolonged immobility Non traumatic rhabdomyolysis due to infection (please specify) Other, please specify Unable to determine (Last Revision: October 2019) Traumatic rhabdomyolysis due to fall MTDD
--- NOTE | 2021-01-17 13:23 | P.PN ---
Subjective Progress Note Date: 01/17/21 Patient is doing even further better as compared to yesterday. Sitting in the recliner. Patient states that she walked with her walker, with assist of [address] down to the end. She has difficulty getting out of bed. Still complained of leg weakness and low back pain. Denies headache. Patient can recall more of the incident. Patient states that they own a big land. The years coming. Patient believes that somehow she went outside for unknown reason, and then she passed out, and she feels that the deers may have stepped on her, that's why she has so many bruises. No previous history of seizures. Objective - Vital Signs Vital signs: Vital Signs Temp 97.8 F 01/17/21 08:00 Pulse 85 01/17/21 08:00 Resp 18 01/17/21 08:00 BP 164/88 01/17/21 08:00 Pulse Ox 95 01/17/21 08:00 Intake & Output 01/16/21 01/17/21 01/17/21 18:59 06:59 18:59 Intake Total 760 940 Output Total 805 Balance -45 940 Weight 88.5 kg Intake: IV 760 940 Dextrose 5%-0.45% NaCl 1, 560 840 000 ml @ 70 mls/hr IV . [id number] [facility] Rx#:[id number] Piperacillin-Tazobactam 3 200 100 .375 gm In Sodium Chloride 0.9% 100 ml @ 25 mls/hr IVPB Q8HR [facility] Rx# :[id number] Output: Urine 805 Other: Voiding Method Indwelling Catheter Bedside Commode Bedside Commode Bedpan Bedpan # Voids 3 # Bowel Movements 3 - Exam Patient is fully alert and awake. Her mentation has much improved. Patient is fairly well oriented. Speech and language functions are normal. No aphasia or dysarthria. Muscle strength is normal in arms and legs except hip flexion, which is about 3-3-. No ataxia for [id number] testing. Visual corona are full. Face symmetric. Sensations are equal with no neglect. - Labs CBC & Chem 7: 01/17/21 03:30 01/17/21 03:30 Labs: Abnormal Lab Results - Last 24 Hours (Table) 01/16/21 01/17/21 Range/Units 03:19 03:30 Sodium 135 L (137-145) mmol/L BUN 19 H (7-17) mg/dL Procalcitonin 2.02 H (0.02-0.09) ng/mL Microbiology - Last 24 Hours (Table) 01/14/21 11:14 Blood Culture - Preliminary Blood No Growth after 48 hours Assessment and Plan Assessment: * Altered mental status, exact cause remains unclear. Patient was found outside her home in [facility], hypothermic, hypotensive, unresponsive, aphasic. CVA was a concern, but MRI of the brain ruled out any stroke. Patient's mentation has much improved. Exam is nonfocal. * Toxic metabolic encephalopathy, almost resolved. * Left ICA stenosis, 50%. * Rhabdomyolysis * Elevated troponins, considered as troponin leak. Plan: * Patient's mentation has much improved. She denies any headache. Examination is nonfocal. * MRI of the brain revealed no acute stroke. Only revealed small vessel disease. * EEG was abnormal due to background slowing of moderate to severe degree. This is suggestive of generalized cerebral dysfunction as can be seen with toxic metabolic encephalopathy, or due to diffuse structural brain abnormality. No definitive epileptiform activity was seen. * Continue aspirin regimen. * Cardiology on board, watching for any arrhythmias. * CPK improved 1490. * We will check B12, folate, TSH. * X-ray of thoracic, lumbar and sacral spine to rule out compression fracture.
[2021-01-17 14:45] VITALS: PULSE 69; RESP 14; TEMP 97.6
[2021-01-17 14:51] VITALS: BP 164/88
--- NOTE | 2021-01-18 14:37 | P.DS ---
Providers Date of admission: 01/14/21 14:44 Expected date of discharge: 01/17/21 Attending physician: Chapo Villa Consults: 01/14/21 14:44 Consult Physician Routine Consulting Provider: Austin Lynn Consult Reason/Comments: Cerebral anoxia, rule out CVA Do you want consulting provider notified?: Yes Consult Physician Routine Consulting Provider: Mookie Lind Consult Reason/Comments: NSTEMI Do you want consulting provider notified?: Yes Consult Physician Stat Consulting Provider: Jona Lynn Consult Reason/Comments: Intensive care management Do you want consulting provider notified?: Already Contacted Primary care physician: Silvano Beatty [place] [facility] Course: Chief Complaint: Altered mental status History of presenting complaint: This is a 86-year-old patient of Dr. Beatty. Patient lives alone. Does use a cane. Her son lives next door. Patient's son saw the patient around 10 PM getting into bed. Next morning patient was found outside the house. In her nightgown. She was simply morning. Patient was hypothermic on arrival to the ER with a temperature of 90.6. Blood pressure was on the lower side. Patient also found to be hyperkalemic, and rhabdomyolysis. Some troponin leak. Urine drug screen was negative. [place] hugger was placed given IV fluids. Admitted in ICU. Patient IV Zosyn. This morning patient is daughter at the bedside. She has not visited the patient for last 10 months because of COVID 19. Patient rather tired lethargic currently. This morning the temperature has come up. Patient unable to give any history currently. Patient had a fever today Admitted with bilateral pneumonia with sepsis, severe hypothermia, severe metabolic encephalopathy, acute rhabdomyolysis, lactic acidosis. Stroke was ruled out. Placed an IV Zosyn. Today: Patient responded well to the above treatment including fluids IV Zosyn. Patient mentation improved. Started to eat better. Did walk with therapy a few steps. Patient's son who was living next doesn't be moving in to live with her. . the daughter at the bedside. Questions were answered. Given patient's age prognosis is guarded. Patient had no other complaints. Discussion and discharge planning more than 35 minutes Consultation: Dr. Husain from [facility] Dr. Burr and colleagues from [facility] Past medical history to include: Arthritis, hypertension Social history: Former smoker. Lives alone. No alcohol. Does use a cane. Son lives next door. Physical examination: VITAL SIGNS: 97.6, 69, 14, 164/88, 96% on room air GENERAL:, sitting up in a chair, comfortable smiling EYES: Pupils equal. Conjunctiva normal. NECK: JVD unable to assess; masses not palpable. HEART: First and second heart sounds are normal; no edema. LUNGS: Respiratory rate normal; decreased breath sounds. ABDOMEN: Soft, nontender, liver spleen not palpable, no masses palpable. PSYCH: Answering questions NEUROLOGICAL: [Cranial nerves grossly intact; no facial asymmetry, moving all 4 limbs MUSCULAR skeletal: Evidence of OA INVESTIGATIONS, reviewed in the clinical context: January 17: WBC 8.4 hemoglobin 13.1 potassium 4.1 creatinine 1.02 procalcitonin 0.84 January 16: WBC 9.1 hemoglobin 13.5 creatinine 1.10 CPK 1490 procalcitonin 2.02 Today: WBC 16.2 hemoglobin 14.8 potassium 4.4 creatinine 1.01 CPK 2874 WBC 15.5 hemoglobin 7.5 platelets 217 potassium 5.7 creatinine 0.95 CPK 1568 Troponin I 0.464, 0.559 UA negative for nitrate and leukoesterase Urine drug screen negative, alcohol less than 10 Coronavirus [PCR)-not detected EKG tracing personally reviewed by me-unable shaky baseline. Sinus rhythm nonspecific ST segment changes Chest x-ray film personally reviewed by me-some scattered infiltrates EEG: Evidence of encephalopathy. No obvious seizure activity noted Assessment and plan: -Bilateral pneumonia with sepsis. Patient initially presenting with severe hypothermia now having fevers. Zosyn started. Responded well -Acute severe metabolic encephalopathy from above improved -Severe hypothermia on presentation likely from infection. Corrected -Primary osteoarthritis :pain medications when necessary -Acute, rhabdomyolysis secondary to fall. IV hydration -Lactic acidosis both a combination of type I and type II. IV fluids -Stroke ruled out -Acute kidney dysfunction from medical debility. Using a walker -DO NOT RESUSCITATE Disposition: Home Patient Condition at Discharge: Serious Plan - Discharge Summary Discharge Rx Participant: No New Discharge Prescriptions: New Amoxicillin/Potassium Clav [Augmentin 875-125 Tablet] 1 tab PO Q12HR #10 tab lisinopriL [Zestril] 10 mg PO DAILY #30 tab Continue Metoprolol Tartrate [Lopressor] 100 mg PO BID Aspirin 81 mg PO DAILY Multivitamins, Thera [Multivitamin (formulary)] 1 tab PO DAILY Fish Oil(Unknown Dose) 1 cap PO DAILY Vitamin D3(Unknown Dose) 1 cap PO DAILY Discontinued Naproxen [Naprosyn] 500 mg PO DAILY Discharge Medication List Aspirin 81 mg PO DAILY 07/01/14 [History] Metoprolol Tartrate [Lopressor] 100 mg PO BID 07/01/14 [History] Fish Oil(Unknown Dose) 1 cap PO DAILY 01/14/21 [History] Multivitamins, Thera [Multivitamin (formulary)] 1 tab PO DAILY 01/14/21 [History] Vitamin D3(Unknown Dose) 1 cap PO DAILY 01/14/21 [History] Amoxicillin/Potassium Clav [Augmentin 875-125 Tablet] 1 tab PO Q12HR #10 tab 01/17/21 [Rx] lisinopriL [Zestril] 10 mg PO DAILY #30 tab 01/17/21 [Rx] Follow up Appointment(s)/Referral(s): Butch Bingham MD [STAFF PHYSICIAN] - 3 Weeks [facility] [REFERRING] - As Needed Silvano Beatty MD [Primary Care Provider] - 1-2 days [facility], [NON-STAFF] - 1-2 Days Patient Instructions/Handouts: Rhabdomyolysis (DC), Rhabdomyolysis (GEN) Discharge Disposition: HOME WITH HOME HEALTH SERVICES
== END 2021-01-17 15:12 | disposition home health service (06) | DRG 871 ==
LOC: EC 10:21 → SUPCPDRO 10:21 → 2SICU 14:44
PROVIDERS: ADMIT Hospitalist; ATTEND Hospitalist
DX: A41.9 Sepsis, unspecified organism (principal); J18.9 Pneumonia, unspecified organism; G92 Toxic encephalopathy; E87.2 Acidosis; N17.9 Acute kidney failure, unspecified; E87.1 Hypo-osmolality and hyponatremia; R47.01 Aphasia; I45.2 Bifascicular block; L89.899 Pressure ulcer of other site, unspecified stage; T79.6XXA Traumatic ischemia of muscle, initial encounter; Z20.822 Contact with and (suspected) exposure to COVID-19; I95.9 Hypotension, unspecified; M19.91 Primary osteoarthritis, unspecified site; I10 Essential (primary) hypertension; I49.3 Ventricular premature depolarization; E86.0 Dehydration; E87.5 Hyperkalemia; Z66 Do not resuscitate; R68.0 Hypothermia, not associated with low environmental temperature; I65.22 Occlusion and stenosis of left carotid artery; S00.81XA Abrasion of other part of head, initial encounter; M50.321 Other cervical disc degeneration at C4-C5 level; S80.12XA Contusion of left lower leg, initial encounter; S80.11XA Contusion of right lower leg, initial encounter; I35.8 Other nonrheumatic aortic valve disorders; R77.8 Other specified abnormalities of plasma proteins; R53.81 Other malaise; W19.XXXA Unspecified fall, initial encounter; Z79.82 Long term (current) use of aspirin; Z79.1 Long term (current) use of non-steroidal anti-inflammatories (NSAID); Z79.899 Other long term (current) drug therapy; Z86.73 Personal history of transient ischemic attack (TIA), and cerebral infarction without residual deficits; Z85.828 Personal history of other malignant neoplasm of skin; Z87.891 Personal history of nicotine dependence; Z98.890 Other specified postprocedural states; Z88.8 Allergy status to other drugs, medicaments and biological substances; Z80.9 Family history of malignant neoplasm, unspecified
CPT/HCPCS: 36415; 70450; 70496; 70498; 70551; 71045; 71046; 72125; 80048; 80053; 80306; 80320; 81001; 82140; 82550; 83605; 84145; 84484; 85025; 85027; 85610; 85730; 87040; 87635; 93005; 93306; 95819; 99285